=== PATIENT | female | born 1940 | race Two or more races ===

== ENCOUNTER 2020-09-26 07:36 | Inpatient (IN) | payer MEDICARE, MEDICAID ==
[~2020-09-26] VITALS: Ht 167.6 cm; Wt 66.7 kg
[2020-09-26] MEDS ORDERED: ACETAMINOPHEN 650MG SUPP PR STA (07:59)
[2020-09-26] MEDS ORDERED: SODIUM CHLORIDE 0.9% 1000ML BAG (SEPSIS BOLUS) IV ONE (08:00)
[2020-09-26] MEDS ORDERED: SODIUM CHLORIDE 0.9% 1,000 ML IV ONE (08:00)
[2020-09-26] MEDS ORDERED: CEFTRIAXONE 1 G PREMIX 50 ML IV ONE (08:00)
[2020-09-26] MEDS ORDERED: AZITHROMYCIN 500 MG in DEXT 5% WATER 250 ML IV ONE (08:00)
[2020-09-26 09:17] LABS: BASOPHILS % 0.5 % (0.0-2.0); EOSINOPHILS % 0.1 % (0.0-5.0); HEMATOCRIT. 40.9 % (36.0-48.0); HEMOGLOBIN. 13.6 g/dL (12.0-16.0); LYMPHOCYTES % 15.2 % (20.0-50.0); MEAN CORPUSCULAR HEMOGLOBIN 29.2 pg (28.0-32.0); MEAN CORPUSCULAR VOLUME 87.7 fL (81.0-99.0); MEAN PLATELET VOLUME 7.2 fl (7.4-10.4); MONOCYTES % 8.2 % (2.0-8.0); PLATELET 357 x1000/uL (130-400); RED BLOOD CELL COUNT 4.66 mill/uL (4.2-5.4); RED CELL DISTRIBUTION WIDTH 13.2 % (11.6-14.6)
[2020-09-26 09:22] LABS: CLARITY URINE CLEAR (CLEAR); COLOR URINE YELLOW (YELLOW); KETONES URINE NEGATIVE (NEGATIVE); LEUKOCYTE ESTERASE URINE NEGATIVE (NEGATIVE); NITRITE URINE NEGATIVE (NEGATIVE); OCCULT BLOOD URINE NEGATIVE (NEGATIVE); PROTEIN URINE NEGATIVE (NEGATIVE); SPECIFIC GRAVITY URINE 1.028 (1.005-1.030); UROBILINOGEN URINE 0.2 E.U./dL (0.2-1.0)
[2020-09-26 09:25] LABS: CHLORIDE 111 mEq/L (98-107)
[2020-09-26 09:33] LABS: CREATINE KINASE 802 IU/L (26-192)
[2020-09-26 09:35] LABS: D-DIMER 17.44 mg/L FEU (<0.50); INR 1.1; PROTHROMBIN TIME 11.4 sec (9.6-11.0)
[2020-09-26] MEDS ORDERED: IOHEXOL-350 100 ML BOTTLE ONE (12:50)
[2020-09-26] MEDS ORDERED: METRONIDAZOLE 500 MG PREMIX 100 ML IV SCH (13:00)
[2020-09-26] MEDS ORDERED: ACETAMINOPHEN 325MG TABLET PO PRN ×2 (17:15)
[2020-09-26] MEDS ORDERED: ACETAMINOPHEN 650MG SUPP PR PRN (17:15)
[2020-09-26] MEDS ORDERED: GUAIFENESIN 200MG/10ML SUGAR FREE UDC PO PRN (17:15)
[2020-09-26] MEDS ORDERED: ONDANSETRON HCL 4MG/2ML INJ IV PRN (17:15)
[2020-09-26] MEDS ORDERED: CLONIDINE 0.1MG TABLET PO PRN (17:15)
[2020-09-26] MEDS ORDERED: ACETAMINOPHEN 650MG/20.3ML UDC GT PRN ×2 (17:15)
[2020-09-26] MEDS ORDERED: DOCUSATE SODIUM 100MG CAPSULE PO PRN (17:15)
[2020-09-26] MEDS ORDERED: NA PHOS,M-B/NA PHOS,DI-BA ENEMA 118ML PR PRN (17:15)
[2020-09-26] MEDS ORDERED: DIPHENHYDRAMINE 50MG/ML VIAL IV PRN (17:15)
[2020-09-26] MEDS ORDERED: HYDROCODONE/ACETAMINOPHEN 5/325MG TABLET PO PRN (17:15)
[2020-09-26] MEDS ORDERED: MAGNESIUM/ALUMINUM HYDROXIDE/SIMETHICONE 30ML UDC PO PRN (17:15)
[2020-09-27 00:40] LABS: CREATINE KINASE MB FRACTION 1.8 ng/mL (0.5-3.6)
[2020-09-27 05:55] LABS: CHLORIDE 117 mEq/L (98-107)
[2020-09-27 06:04] LABS: CREATINE KINASE 371 IU/L (26-192)
[2020-09-27 06:07] LABS: CREATINE KINASE MB FRACTION 1.9 ng/mL (0.5-3.6)
[2020-09-27 09:37] LABS: *AMPHETAMINES SCREEN URINE NEGATIVE (NEGATIVE); *BARBITURATES SCREEN URINE NEGATIVE (NEGATIVE); *BENZODIAZEPINES SCREEN URINE NEGATIVE (NEGATIVE)
[2020-09-27 09:38] LABS: *COCAINE SCREEN URINE NEGATIVE (NEGATIVE); CANNABINOID URINE SCREEN NEGATIVE (NEGATIVE); METHADONE URINE SCREEN NEGATIVE (NEGATIVE); OPIATES URINE SCREEN NEGATIVE (NEGATIVE); PHENCYCLIDINE URINE SCREEN NEGATIVE (NEGATIVE)
[2020-09-27] MEDS ORDERED: SODIUM CHLORIDE 0.9% 1,000 ML IV SCH (10:00)
[2020-09-27] MEDS: DEXTROSE 5% WATER 1,000 ML IV SCH (11:15)
[2020-09-27 11:35] LABS: T4 FREE 1.48 ng/dL (0.76-1.46)
[2020-09-27 16:12] VITALS: BP 125/80
[2020-09-27] MEDS: SENNOSIDES/DOCUSATE SOD 8.6/50MG TABLET PO SCH (16:52)
[2020-09-27 20:00] VITALS: BP 136/63
[2020-09-27 21:19] LABS: CREATINE KINASE 298 IU/L (26-192)
[2020-09-27 21:20] LABS: CREATINE KINASE MB FRACTION 3.2 ng/mL (0.5-3.6)
[2020-09-28 00:09] VITALS: BP 125/68
[2020-09-28] MEDS: DEXTROSE 5% WATER 1,000 ML IV SCH ×2 (01:13→17:11)
[2020-09-28 01:43] LABS: CREATINE KINASE 237 IU/L (26-192)
[2020-09-28 01:44] LABS: CREATINE KINASE MB FRACTION 2.9 ng/mL (0.5-3.6)
[2020-09-28 04:00] VITALS: BP 141/79
[2020-09-28] MEDS ORDERED: DEXTROSE 50% WATER 50ML SYRINGE IV PRN (07:30)
[2020-09-28 08:00] VITALS: BP 130/73
[2020-09-28 09:33] LABS: CREATINE KINASE 170 IU/L (26-192)
[2020-09-28 09:34] LABS: CREATINE KINASE MB FRACTION 2.3 ng/mL (0.5-3.6)
[2020-09-28] MEDS: ENOXAPARIN 40MG/0.4ML SYR SUBCUT SCH (10:28)
[2020-09-28] MEDS: SENNOSIDES/DOCUSATE SOD 8.6/50MG TABLET PO SCH ×2 (10:29→17:10)
[2020-09-28] MEDS: BLOOD SUGAR DIAGNOSTIC STRIP TEST SCH ×3 (11:40→21:07)
[2020-09-28] MEDS: VANCOMYCIN 750 MG PREMIX 150 ML IV SCH (11:54)
[2020-09-28 12:00] VITALS: BP 157/86
[2020-09-28] MEDS: INSULIN LISPRO 100 UNITS/ML SUBCUT SCH ×3 (12:10→21:17)
[2020-09-28 16:00] VITALS: BP 150/83
[2020-09-28] MEDS: NYSTATIN 100,000 UNITS/ML 5ML UDC SSW SCH (17:10)
[2020-09-28 20:00] VITALS: BP 134/73
[2020-09-28 21:28] LABS: BASOPHILS % 0.5 % (0.0-2.0); EOSINOPHILS % 3.1 % (0.0-5.0); HEMATOCRIT. 34.4 % (36.0-48.0); HEMOGLOBIN. 11.5 g/dL (12.0-16.0); LYMPHOCYTES % 12.7 % (20.0-50.0); MEAN CORPUSCULAR HEMOGLOBIN 29.5 pg (28.0-32.0); MEAN CORPUSCULAR VOLUME 88.2 fL (81.0-99.0); MEAN PLATELET VOLUME 7.9 fl (7.4-10.4); MONOCYTES % 6.8 % (2.0-8.0); NEUTROPHILS % 76.9 % (40.0-76.0); PLATELET 239 x1000/uL (130-400); RED CELL DISTRIBUTION WIDTH 12.8 % (11.6-14.6)
[2020-09-28 21:38] LABS: CHLORIDE 114 mEq/L (98-107)
[2020-09-29] VITALS: BP 129/80
[2020-09-29] MEDS: NYSTATIN 100,000 UNITS/ML 5ML UDC SSW SCH ×4 (01:04→17:02)
[2020-09-29 04:00] VITALS: BP 124/68
[2020-09-29] MEDS: VANCOMYCIN 750 MG PREMIX 150 ML IV SCH (04:54)
[2020-09-29] MEDS: DEXTROSE 5% WATER 1,000 ML IV SCH ×2 (04:56→16:46)
[2020-09-29] MEDS: BLOOD SUGAR DIAGNOSTIC STRIP TEST SCH ×4 (07:20→21:15)
[2020-09-29 08:00] VITALS: BP 134/75
[2020-09-29] MEDS: SENNOSIDES/DOCUSATE SOD 8.6/50MG TABLET PO SCH ×2 (08:54→16:44)
[2020-09-29] MEDS: ENOXAPARIN 40MG/0.4ML SYR SUBCUT SCH (08:55)
[2020-09-29] MEDS: INSULIN LISPRO 100 UNITS/ML SUBCUT SCH ×4 (08:57→21:50)
[2020-09-29] MEDS: VANCOMYCIN 1 G PREMIX 200 ML IV SCH (17:02)
[2020-09-29 20:00] VITALS: BP 122/67
[2020-09-29 20:16] LABS: INR 1.1; PROTHROMBIN TIME 11.5 sec (9.6-11.0)
[2020-09-29 20:18] LABS: BASOPHILS % 0.3 % (0.0-2.0); EOSINOPHILS % 4.3 % (0.0-5.0); HEMATOCRIT. 32.3 % (36.0-48.0); HEMOGLOBIN. 10.9 g/dL (12.0-16.0); LYMPHOCYTES % 15.6 % (20.0-50.0); MEAN CORPUSCULAR HEMOGLOBIN 29.5 pg (28.0-32.0); MEAN CORPUSCULAR VOLUME 87.6 fL (81.0-99.0); MEAN PLATELET VOLUME 8.1 fl (7.4-10.4); MONOCYTES % 8.5 % (2.0-8.0); NEUTROPHILS % 71.3 % (40.0-76.0); PLATELET 234 x1000/uL (130-400); RED BLOOD CELL COUNT 3.69 mill/uL (4.2-5.4); RED CELL DISTRIBUTION WIDTH 12.9 % (11.6-14.6)
[2020-09-29 20:22] LABS: CHLORIDE 111 mEq/L (98-107)
[2020-09-29] MEDS: ENOXAPARIN 60MG/0.6ML SYR SUBCUT SCH (22:51)
[2020-09-30] VITALS: BP 124/50
[2020-09-30] MEDS: NYSTATIN 100,000 UNITS/ML 5ML UDC SSW SCH ×4 (00:13→18:07)
[2020-09-30 04:00] VITALS: BP 127/68
[2020-09-30] MEDS: DEXTROSE 5% WATER 1,000 ML IV SCH (05:57)
[2020-09-30 07:15] LABS: BASOPHILS % 0.4 % (0.0-2.0); EOSINOPHILS % 5.6 % (0.0-5.0); HEMATOCRIT. 30.5 % (36.0-48.0); HEMOGLOBIN. 10.3 g/dL (12.0-16.0); LYMPHOCYTES % 13.4 % (20.0-50.0); MEAN CORPUSCULAR HEMOGLOBIN 29.4 pg (28.0-32.0); MEAN CORPUSCULAR VOLUME 87.5 fL (81.0-99.0); MEAN PLATELET VOLUME 8.2 fl (7.4-10.4); MONOCYTES % 6.7 % (2.0-8.0); NEUTROPHILS % 73.9 % (40.0-76.0); PLATELET 236 x1000/uL (130-400); RED BLOOD CELL COUNT 3.49 mill/uL (4.2-5.4); RED CELL DISTRIBUTION WIDTH 12.7 % (11.6-14.6)
[2020-09-30 07:23] LABS: CHLORIDE 109 mEq/L (98-107)
[2020-09-30] MEDS: BLOOD SUGAR DIAGNOSTIC STRIP TEST SCH ×4 (07:32→21:00)
[2020-09-30] MEDS: INSULIN LISPRO 100 UNITS/ML SUBCUT SCH ×4 (07:50→21:00)
[2020-09-30 08:00] VITALS: BP 101/65
[2020-09-30] MEDS: ENOXAPARIN 60MG/0.6ML SYR SUBCUT SCH ×2 (08:01→21:52)
[2020-09-30] MEDS: SENNOSIDES/DOCUSATE SOD 8.6/50MG TABLET PO SCH ×2 (09:00→17:00)
[2020-09-30] MEDS: VANCOMYCIN 1 G PREMIX 200 ML IV SCH (11:05)
[2020-09-30 12:00] VITALS: BP 132/69
[2020-09-30] MEDS ORDERED: BISACODYL 10MG SUPP PR NR (12:00)
[2020-09-30] MEDS ORDERED: KCL 20MEQ/100ML PREMIX 100 ML IV ONE (13:00)
[2020-09-30 20:00] VITALS: BP 130/65
[2020-09-30] MEDS: PANTOPRAZOLE SODIUM 40 MG/VIAL IV SCH (21:36)
[2020-10-01] VITALS: BP 142/73
[2020-10-01] MEDS: NYSTATIN 100,000 UNITS/ML 5ML UDC SSW SCH ×4 (00:21→21:57)
[2020-10-01] MEDS: DEXTROSE 5% WATER 1,000 ML IV SCH ×2 (00:21→21:59)
[2020-10-01 04:00] VITALS: BP 146/63
[2020-10-01] MEDS: BLOOD SUGAR DIAGNOSTIC STRIP TEST SCH ×4 (07:20→21:58)
[2020-10-01] MEDS: INSULIN LISPRO 100 UNITS/ML SUBCUT SCH ×4 (07:50→21:00)
[2020-10-01 08:00] VITALS: BP 129/64
[2020-10-01] MEDS: SENNOSIDES/DOCUSATE SOD 8.6/50MG TABLET PO SCH ×2 (09:00→17:00)
[2020-10-01] MEDS: ENOXAPARIN 60MG/0.6ML SYR SUBCUT SCH ×2 (09:08→21:58)
[2020-10-01] MEDS: PANTOPRAZOLE SODIUM 40 MG/VIAL IV SCH ×2 (09:08→21:57)
[2020-10-01 10:06] LABS: BASOPHILS % 0.5 % (0.0-2.0); EOSINOPHILS % 4.5 % (0.0-5.0); HEMOGLOBIN. 11.2 g/dL (12.0-16.0); LYMPHOCYTES % 12.7 % (20.0-50.0); MEAN CORPUSCULAR VOLUME 86.1 fL (81.0-99.0); MEAN PLATELET VOLUME 7.9 fl (7.4-10.4); MONOCYTES % 6.1 % (2.0-8.0); NEUTROPHILS % 76.2 % (40.0-76.0); PLATELET 279 x1000/uL (130-400); RED CELL DISTRIBUTION WIDTH 12.8 % (11.6-14.6)
[2020-10-01 10:15] LABS: INR 1.1; PROTHROMBIN TIME 11.8 sec (9.6-11.0)
[2020-10-01 10:21] LABS: CHLORIDE 106 mEq/L (98-107)
[2020-10-01 12:00] VITALS: BP 132/66
[2020-10-01] MEDS ORDERED: CEFAZOLIN 1000MG PREMIX 50 ML IV ONE ×2 (15:40→16:33)
[2020-10-01] MEDS ORDERED: FENTANYL CITRATE/PF 50MCG/ML 2ML VIAL ONE (15:45)
[2020-10-01] MEDS ORDERED: MIDAZOLAM HCL 5 MG/5 ML VIAL ONE (15:45)
[2020-10-01] MEDS ORDERED: CEFAZOLIN 1000MG PREMIX 50 ML IV SCH (18:00)
[2020-10-01 20:00] VITALS: BP 129/58
[2020-10-01] MEDS ORDERED: POTASSIUM CHLORIDE INJ 40 MEQ in DEXT 5% WATER 500 ML IV NR (21:00)
[2020-10-01] MEDS: SUCRALFATE 1 G/10 ML UDC GT SCH (21:56)
[2020-10-01] MEDS: METOCLOPRAMIDE HCL 10MG/2ML VIAL IV SCH (21:57)
[2020-10-02] VITALS: BP 113/46
[2020-10-02] MEDS: METOCLOPRAMIDE HCL 10MG/2ML VIAL IV SCH ×5 (01:46→23:12)
[2020-10-02] MEDS: NYSTATIN 100,000 UNITS/ML 5ML UDC SSW SCH ×5 (01:47→23:12)
[2020-10-02] MEDS: SUCRALFATE 1 G/10 ML UDC GT SCH ×5 (01:47→23:07)
[2020-10-02 04:00] VITALS: BP 138/61
[2020-10-02] MEDS: BLOOD SUGAR DIAGNOSTIC STRIP TEST SCH ×4 (06:46→21:00)
[2020-10-02 07:10] LABS: BASOPHILS % 0.4 % (0.0-2.0); EOSINOPHILS % 4.7 % (0.0-5.0); HEMATOCRIT. 28.9 % (36.0-48.0); HEMOGLOBIN. 10.2 g/dL (12.0-16.0); LYMPHOCYTES % 10.9 % (20.0-50.0); MEAN CORPUSCULAR HEMOGLOBIN 30.1 pg (28.0-32.0); MEAN CORPUSCULAR VOLUME 85.1 fL (81.0-99.0); MEAN PLATELET VOLUME 7.9 fl (7.4-10.4); MONOCYTES % 7.4 % (2.0-8.0); NEUTROPHILS % 76.6 % (40.0-76.0); PLATELET 298 x1000/uL (130-400); RED CELL DISTRIBUTION WIDTH 12.8 % (11.6-14.6)
[2020-10-02 07:46] LABS: CHLORIDE 106 mEq/L (98-107)
[2020-10-02] MEDS: INSULIN LISPRO 100 UNITS/ML SUBCUT SCH ×4 (07:50→21:00)
[2020-10-02 08:00] VITALS: BP 111/56
[2020-10-02] MEDS: PANTOPRAZOLE SODIUM 40 MG/VIAL IV SCH ×2 (09:03→22:13)
[2020-10-02] MEDS: ENOXAPARIN 60MG/0.6ML SYR SUBCUT SCH ×2 (09:04→22:12)
[2020-10-02] MEDS: SENNOSIDES/DOCUSATE SOD 8.6/50MG TABLET PO SCH ×2 (09:04→18:01)
[2020-10-02 12:00] VITALS: BP 127/56
[2020-10-02] MEDS: DEXTROSE 5% WATER 1,000 ML IV SCH (12:55)
[2020-10-02 16:00] VITALS: BP 114/60
[2020-10-02 20:00] VITALS: BP 123/58
[2020-10-03] VITALS: BP_SYST 109; BP_SYST 118; BP_DIAS 65; BP_DIAS 69
[2020-10-03 04:00] VITALS: BP 116/69
[2020-10-03] MEDS: SUCRALFATE 1 G/10 ML UDC GT SCH ×3 (06:48→17:25)
[2020-10-03] MEDS: NYSTATIN 100,000 UNITS/ML 5ML UDC SSW SCH ×3 (06:48→17:25)
[2020-10-03] MEDS: METOCLOPRAMIDE HCL 10MG/2ML VIAL IV SCH ×3 (06:48→17:25)
[2020-10-03] MEDS: DEXTROSE 5% WATER 1,000 ML IV SCH ×2 (06:48→13:32)
[2020-10-03] MEDS: INSULIN LISPRO 100 UNITS/ML SUBCUT SCH ×4 (07:47→21:00)
[2020-10-03] MEDS: BLOOD SUGAR DIAGNOSTIC STRIP TEST SCH ×4 (07:47→21:00)
[2020-10-03 08:00] VITALS: BP 153/58
[2020-10-03] MEDS: SENNOSIDES/DOCUSATE SOD 8.6/50MG TABLET PO SCH ×2 (09:06→17:25)
[2020-10-03] MEDS: PANTOPRAZOLE SODIUM 40 MG/VIAL IV SCH (09:06)
[2020-10-03] MEDS: ENOXAPARIN 60MG/0.6ML SYR SUBCUT SCH (09:07)
[2020-10-03 12:00] VITALS: BP 122/56
[2020-10-03] MEDS ORDERED: PHYTONADIONE 10MG/ML AMP SUBCUT NR (13:15)
[2020-10-03 16:00] VITALS: BP 130/73
[2020-10-03 16:12] LABS: CHLORIDE 102 mEq/L (98-107)
[2020-10-03 16:19] LABS: BASOPHILS % 0.4 % (0.0-2.0); EOSINOPHILS % 2.3 % (0.0-5.0); HEMATOCRIT. 34.2 % (36.0-48.0); HEMOGLOBIN. 11.8 g/dL (12.0-16.0); LYMPHOCYTES % 12.1 % (20.0-50.0); MEAN CORPUSCULAR HEMOGLOBIN 29.2 pg (28.0-32.0); MEAN CORPUSCULAR VOLUME 84.4 fL (81.0-99.0); MEAN PLATELET VOLUME 7.6 fl (7.4-10.4); MONOCYTES % 8.9 % (2.0-8.0); NEUTROPHILS % 76.3 % (40.0-76.0); PLATELET 409 x1000/uL (130-400); RED BLOOD CELL COUNT 4.06 mill/uL (4.2-5.4); RED CELL DISTRIBUTION WIDTH 12.7 % (11.6-14.6)
[2020-10-03 20:00] VITALS: BP 121/60
[2020-10-04] VITALS: BP 110/59
[2020-10-04] MEDS: PANTOPRAZOLE SODIUM 40 MG/VIAL IV SCH ×3 (00:11→20:47)
[2020-10-04] MEDS: SUCRALFATE 1 G/10 ML UDC GT SCH ×5 (00:11→23:48)
[2020-10-04] MEDS: METOCLOPRAMIDE HCL 10MG/2ML VIAL IV SCH (00:11)
[2020-10-04] MEDS: DEXTROSE 5% WATER 1,000 ML IV SCH ×2 (06:21→17:28)
[2020-10-04] MEDS: BLOOD SUGAR DIAGNOSTIC STRIP TEST SCH ×4 (07:57→21:03)
[2020-10-04 08:00] VITALS: BP 124/64
[2020-10-04] MEDS: SENNOSIDES/DOCUSATE SOD 8.6/50MG TABLET PO SCH ×2 (08:35→17:29)
[2020-10-04] MEDS: INSULIN LISPRO 100 UNITS/ML SUBCUT SCH ×4 (08:53→21:33)
[2020-10-04 12:00] VITALS: BP 118/64
[2020-10-04 16:00] VITALS: BP 118/56
[2020-10-04 20:00] VITALS: BP 128/60
[2020-10-05] VITALS: BP 126/54
[2020-10-05 04:00] VITALS: BP 139/66
[2020-10-05] MEDS: SUCRALFATE 1 G/10 ML UDC GT SCH ×3 (05:38→16:50)
[2020-10-05] MEDS: BLOOD SUGAR DIAGNOSTIC STRIP TEST SCH ×4 (07:37→21:12)
[2020-10-05] MEDS: INSULIN LISPRO 100 UNITS/ML SUBCUT SCH ×4 (07:50→21:00)
[2020-10-05 08:00] VITALS: BP 120/64
[2020-10-05] MEDS: PANTOPRAZOLE SODIUM 40 MG/VIAL IV SCH ×2 (09:42→20:56)
[2020-10-05] MEDS: SENNOSIDES/DOCUSATE SOD 8.6/50MG TABLET PO SCH ×2 (09:49→16:59)
[2020-10-05 12:00] VITALS: BP 126/62
[2020-10-05] MEDS: DEXTROSE 5% WATER 1,000 ML IV SCH (14:03)
[2020-10-05 20:00] VITALS: BP 124/68
[2020-10-06] VITALS: BP 118/53
[2020-10-06] MEDS: SUCRALFATE 1 G/10 ML UDC GT SCH ×4 (00:09→17:38)
[2020-10-06 04:00] VITALS: BP 142/78
[2020-10-06] MEDS: BLOOD SUGAR DIAGNOSTIC STRIP TEST SCH ×4 (06:54→21:00)
[2020-10-06 08:00] VITALS: BP 147/68
[2020-10-06] MEDS: PANTOPRAZOLE SODIUM 40 MG/VIAL IV SCH ×2 (08:37→20:54)
[2020-10-06] MEDS: DEXTROSE 5% WATER 1,000 ML IV SCH ×3 (08:38→21:55)
[2020-10-06] MEDS: SENNOSIDES/DOCUSATE SOD 8.6/50MG TABLET PO SCH ×2 (08:38→17:27)
[2020-10-06] MEDS: INSULIN LISPRO 100 UNITS/ML SUBCUT SCH ×4 (08:42→20:42)
[2020-10-06 12:00] VITALS: BP 106/43
[2020-10-06 16:00] VITALS: BP 123/65
[2020-10-06 20:00] VITALS: BP 148/70
[2020-10-07] VITALS: BP 132/61
[2020-10-07] MEDS: SUCRALFATE 1 G/10 ML UDC GT SCH ×4 (00:18→17:21)
[2020-10-07 04:00] VITALS: BP 130/60
[2020-10-07] MEDS: BLOOD SUGAR DIAGNOSTIC STRIP TEST SCH ×4 (06:36→21:00)
[2020-10-07] MEDS: INSULIN LISPRO 100 UNITS/ML SUBCUT SCH ×4 (07:50→21:00)
[2020-10-07 08:00] VITALS: BP 127/61
[2020-10-07] MEDS: PANTOPRAZOLE SODIUM 40 MG/VIAL IV SCH ×2 (09:05→21:18)
[2020-10-07] MEDS: SENNOSIDES/DOCUSATE SOD 8.6/50MG TABLET PO SCH ×2 (09:05→17:20)
[2020-10-07 12:00] VITALS: BP 135/65
[2020-10-07] MEDS: DEXTROSE 5% WATER 1,000 ML IV SCH (14:35)
[2020-10-07 16:00] VITALS: BP 130/58
[2020-10-07 20:00] VITALS: BP 101/59
[2020-10-08] VITALS (7 sets, daily range): BP systolic 113–152; BP diastolic 52–66
[2020-10-08] MEDS: SUCRALFATE 1 G/10 ML UDC GT SCH ×4 (04:48→18:10)
[2020-10-08] MEDS: BLOOD SUGAR DIAGNOSTIC STRIP TEST SCH ×3 (07:20→18:17)
[2020-10-08 07:47] LABS: CHLORIDE 101 mEq/L (98-107)
[2020-10-08 07:57] LABS: BASOPHILS % 0.7 % (0.0-2.0); EOSINOPHILS % 7.1 % (0.0-5.0); HEMATOCRIT. 28.6 % (36.0-48.0); HEMOGLOBIN. 9.7 g/dL (12.0-16.0); LYMPHOCYTES % 14.9 % (20.0-50.0); MEAN CORPUSCULAR HEMOGLOBIN 29.3 pg (28.0-32.0); MEAN CORPUSCULAR VOLUME 86.7 fL (81.0-99.0); MEAN PLATELET VOLUME 6.9 fl (7.4-10.4); MONOCYTES % 6.4 % (2.0-8.0); NEUTROPHILS % 70.9 % (40.0-76.0); PLATELET 440 x1000/uL (130-400); RED CELL DISTRIBUTION WIDTH 13.1 % (11.6-14.6)
[2020-10-08] MEDS: SENNOSIDES/DOCUSATE SOD 8.6/50MG TABLET PO SCH ×2 (09:07→18:10)
[2020-10-08] MEDS: PANTOPRAZOLE SODIUM 40 MG/VIAL IV SCH (09:07)
[2020-10-08] MEDS: INSULIN LISPRO 100 UNITS/ML SUBCUT SCH ×3 (09:18→18:17)
[2020-10-08] MEDS: DEXTROSE 5% WATER 1,000 ML IV SCH (13:08)
[2020-10-09] MEDS ORDERED: ASCORBIC ACID 250 MG TABLET PO SCH (09:00)
[2020-10-09] MEDS ORDERED: ZINC SULFATE 220 MG ( 50 ) CAPSULE PO SCH (09:00)
== END 2020-10-08 21:04 | DRG 640 ==
LOC: ER 07:44 → MICUSO 15:38 → EDBEDREQSVC 15:41 → EDBEDREQ 15:41 → 7EST 09-27 10:59 → MICUSO 09-27 11:57 → 7EST 09-27 12:25 → 3WST 09-28 23:44 → 6EST 09-29 01:45
PROVIDERS: ADMIT Family Medicine; ATTEND Family Medicine
PROC: 0DH63UZ Insertion of Feeding Device into Stomach, Percutaneous Approach (ICD-10-PCS; principal; 2020-10-01)
PROC: 0DB68ZX Excision of Stomach, Via Natural or Artificial Opening Endoscopic, Diagnostic (ICD-10-PCS; 2020-10-01)
DX: E86.0 Dehydration (principal); N17.0 Acute kidney failure with tubular necrosis; I48.20 Chronic atrial fibrillation, unspecified; I82.432 Acute embolism and thrombosis of left popliteal vein; E44.0 Moderate protein-calorie malnutrition; E87.0 Hyperosmolality and hypernatremia; F03.90 Unspecified dementia, unspecified severity, without behavioral disturbance, psychotic disturbance, mood disturbance, and anxiety; E11.9 Type 2 diabetes mellitus without complications; I10 Essential (primary) hypertension; I70.0 Atherosclerosis of aorta; I71.2 Thoracic aortic aneurysm, without rupture; K56.41 Fecal impaction; Z20.828 Contact with and (suspected) exposure to other viral communicable diseases; D64.9 Anemia, unspecified; K29.30 Chronic superficial gastritis without bleeding; K29.60 Other gastritis without bleeding; K29.80 Duodenitis without bleeding; K62.89 Other specified diseases of anus and rectum; K52.9 Noninfective gastroenteritis and colitis, unspecified; L85.3 Xerosis cutis; R13.10 Dysphagia, unspecified; Z79.899 Other long term (current) drug therapy; Z79.1 Long term (current) use of non-steroidal anti-inflammatories (NSAID); Z79.82 Long term (current) use of aspirin; Z68.23 Body mass index [BMI] 23.0-23.9, adult; R91.8 Other nonspecific abnormal finding of lung field; K26.9 Duodenal ulcer, unspecified as acute or chronic, without hemorrhage or perforation; R62.7 Adult failure to thrive; Z86.718 Personal history of other venous thrombosis and embolism
CPT/HCPCS: 36415; 71045; 71275; 74018; 74174; 80048; 80053; 80061; 80305; 81003; 82550; 82553; 82728; 82941; 82962; 83036; 83605; 83615; 83880; 84145; 84439; 84443; 84484; 85025; 85379; 85384; 86140; 88305; 88313; 92610; 93005; 93306; 93971; 99291; C9113; J0456; J0690; J0696; J1200; J1650; J1815; J2250; J2765; J3010; J3370; J3430; J3480; J3490; J7030; J7040; J7060; J7070; Q9967; U0003

== ENCOUNTER 2022-11-20 11:18 | Inpatient (IN) | payer MEDICARE, MEDICAID ==
[~2022-11-20] VITALS: Ht 154.9 cm; Wt 68.9 kg
[2022-11-20] MEDS ORDERED: PANTOPRAZOLE SODIUM 40 MG/VIAL IV NR (12:15)
[2022-11-20] MEDS ORDERED: SODIUM CHLORIDE 0.9% 1,000 ML IV ONE (12:15)
[2022-11-20 13:54] LABS: BASOPHILS % 0.2 % (0.0-2.0); HEMOGLOBIN. 14.5 g/dL (12.0-16.0); LYMPHOCYTES % 9.8 % (20.0-50.0); MEAN CORPUSCULAR HEMOGLOBIN 29.5 pg (28.0-32.0); MEAN CORPUSCULAR VOLUME 89.4 fL (81.0-99.0); MEAN PLATELET VOLUME 7.9 fl (7.4-10.4); MONOCYTES % 4.7 % (2.0-8.0); NEUTROPHILS % 85.3 % (40.0-76.0); PLATELET 241 x1000/uL (130-400); RED BLOOD CELL COUNT 4.92 mill/uL (4.2-5.4); RED CELL DISTRIBUTION WIDTH 13.6 % (11.6-14.6)
[2022-11-20 14:02] LABS: CHLORIDE 100 mEq/L (98-107)
[2022-11-20 14:05] LABS: PROTHROMBIN TIME 10.6 sec (9.6-11.0)
[2022-11-20] MEDS ORDERED: HYDRALAZINE 20MG/ML VIAL IV ONE (16:00)
[2022-11-20] MEDS ORDERED: DOCUSATE SODIUM 100MG CAPSULE PO SCH (18:15)
[2022-11-20] MEDS ORDERED: SENNOSIDES/DOCUSATE SOD 8.6/50MG TABLET PO PRN ×2 (18:15→18:30)
[2022-11-20] MEDS ORDERED: DEXTROSE 50% WATER 50ML SYRINGE IV PRN (18:30)
[2022-11-20] MEDS: PANTOPRAZOLE 80 MG in SODIUM CHLORIDE 0.9% 100 ML IV SCH (19:00)
[2022-11-20] MEDS ORDERED: MINERAL OIL ENEMA 133ML PR NR (19:00)
[2022-11-20] MEDS: INSULIN LISPRO 100 UNITS/ML SUBCUT SCH (21:00)
[2022-11-20] MEDS: BLOOD SUGAR DIAGNOSTIC STRIP TEST SCH (21:34)
[2022-11-20] MEDS: SODIUM CHLORIDE 0.45% 1,000 ML IV SCH (21:35)
[2022-11-20] MEDS: LACTULOSE 20G/30ML UDC PO SCH (22:00)
[2022-11-21 05:22] LABS: BASOPHILS % 0.4 % (0.0-2.0); EOSINOPHILS % 1.2 % (0.0-5.0); HEMATOCRIT. 38.2 % (36.0-48.0); HEMOGLOBIN. 12.8 g/dL (12.0-16.0); MEAN CORPUSCULAR HEMOGLOBIN 30.1 pg (28.0-32.0); MEAN CORPUSCULAR VOLUME 89.8 fL (81.0-99.0); MEAN PLATELET VOLUME 7.4 fl (7.4-10.4); MONOCYTES % 7.1 % (2.0-8.0); NEUTROPHILS % 77.3 % (40.0-76.0); PLATELET 219 x1000/uL (130-400); RED BLOOD CELL COUNT 4.25 mill/uL (4.2-5.4); RED CELL DISTRIBUTION WIDTH 13.4 % (11.6-14.6)
[2022-11-21 05:44] LABS: PROTHROMBIN TIME 10.9 sec (9.6-11.0)
[2022-11-21 05:49] LABS: CHLORIDE 107 mEq/L (98-107)
[2022-11-21 05:57] LABS: HDL CHOLESTEROL 56 mg/dL (40-59); LDL CHOLESTEROL 70 mg/dL (5-100)
[2022-11-21] MEDS: PANTOPRAZOLE 80 MG in SODIUM CHLORIDE 0.9% 100 ML IV SCH (10:42)
[2022-11-21] MEDS: SUCRALFATE 1 G/10 ML UDC GT SCH ×2 (17:05→21:48)
[2022-11-21] MEDS: BLOOD SUGAR DIAGNOSTIC STRIP TEST SCH ×2 (17:20→21:49)
[2022-11-21] MEDS: INSULIN LISPRO 100 UNITS/ML SUBCUT SCH ×2 (17:50→21:00)
[2022-11-21 20:00] VITALS: BP 146/80
[2022-11-21 20:12] VITALS: BP 148/73
[2022-11-21] MEDS: PANTOPRAZOLE SODIUM 40 MG/VIAL IV SCH (20:52)
[2022-11-21] MEDS ORDERED: ALBUTEROL (0.083%) 2.5MG/3ML NEB ONE (21:27)
[2022-11-21] MEDS ORDERED: IPRATROPIUM BROMIDE (0.02%) 0.5MG/2.5ML NEB ONE (21:27)
[2022-11-21] MEDS: IPRATROPIUM BROMIDE (0.02%) 0.5MG/2.5ML NEB HHN SCH (21:28)
[2022-11-21] MEDS: ALBUTEROL (0.083%) 2.5MG/3ML NEB HHN SCH (21:28)
[2022-11-22] VITALS: BP 150/66
[2022-11-22] MEDS ORDERED: IPRATROPIUM/ALBUTEROL 0.5-3(2.5)MG/3ML NEB HHN SCH
[2022-11-22] MEDS: IPRATROPIUM BROMIDE (0.02%) 0.5MG/2.5ML NEB HHN SCH ×4 (03:09→20:27)
[2022-11-22] MEDS: ALBUTEROL (0.083%) 2.5MG/3ML NEB HHN SCH ×4 (03:09→20:27)
[2022-11-22 04:00] VITALS: BP 134/67
[2022-11-22 05:51] LABS: BASOPHILS % 0.4 % (0.0-2.0); HEMATOCRIT. 36.2 % (36.0-48.0); HEMOGLOBIN. 12.1 g/dL (12.0-16.0); LYMPHOCYTES % 18.4 % (20.0-50.0); MEAN CORPUSCULAR HEMOGLOBIN 30.5 pg (28.0-32.0); MEAN CORPUSCULAR VOLUME 91.2 fL (81.0-99.0); MEAN PLATELET VOLUME 7.6 fl (7.4-10.4); NEUTROPHILS % 71.2 % (40.0-76.0); PLATELET 198 x1000/uL (130-400); RED BLOOD CELL COUNT 3.96 mill/uL (4.2-5.4); RED CELL DISTRIBUTION WIDTH 13.5 % (11.6-14.6)
[2022-11-22] MEDS: SUCRALFATE 1 G/10 ML UDC GT SCH ×3 (06:46→20:22)
[2022-11-22 07:36] LABS: CHLORIDE 107 mEq/L (98-107)
[2022-11-22 08:00] VITALS: BP 146/82
[2022-11-22] MEDS ORDERED: NA PHOS,M-B/NA PHOS,DI-BA ENEMA 118ML PR NR (09:45)
[2022-11-22] MEDS: SODIUM CHLORIDE 0.45% 1,000 ML IV SCH ×2 (11:38→21:00)
[2022-11-22 12:00] VITALS: BP 147/70
[2022-11-22] MEDS: BLOOD SUGAR DIAGNOSTIC STRIP TEST SCH ×3 (12:38→21:00)
[2022-11-22] MEDS: INSULIN LISPRO 100 UNITS/ML SUBCUT SCH ×3 (12:39→21:00)
[2022-11-22 16:00] VITALS: BP 145/74
[2022-11-22] MEDS: METOPROLOL TARTRATE 25MG TABLET PO SCH ×2 (18:18→20:21)
[2022-11-22] MEDS: LACTULOSE 20G/30ML UDC PO SCH (18:19)
[2022-11-22] MEDS: PANTOPRAZOLE SODIUM 40 MG/VIAL IV SCH ×2 (18:19→20:22)
[2022-11-22 20:00] VITALS: BP 156/78
[2022-11-23] VITALS: BP 144/79
[2022-11-23] MEDS: ALBUTEROL (0.083%) 2.5MG/3ML NEB HHN SCH ×2 (01:45→09:25)
[2022-11-23] MEDS: IPRATROPIUM BROMIDE (0.02%) 0.5MG/2.5ML NEB HHN SCH ×2 (01:45→09:25)
[2022-11-23 04:00] VITALS: BP 143/71
[2022-11-23] MEDS: SUCRALFATE 1 G/10 ML UDC GT SCH (06:48)
[2022-11-23] MEDS: LACTULOSE 20G/30ML UDC PO SCH (06:48)
[2022-11-23 07:10] LABS: BASOPHILS % 0.3 % (0.0-2.0); EOSINOPHILS % 4.3 % (0.0-5.0); HEMATOCRIT. 36.7 % (36.0-48.0); HEMOGLOBIN. 12.2 g/dL (12.0-16.0); LYMPHOCYTES % 22.4 % (20.0-50.0); MEAN CORPUSCULAR HEMOGLOBIN 30.5 pg (28.0-32.0); MEAN CORPUSCULAR VOLUME 91.7 fL (81.0-99.0); MEAN PLATELET VOLUME 7.5 fl (7.4-10.4); PLATELET 203 x1000/uL (130-400); RED BLOOD CELL COUNT 4.01 mill/uL (4.2-5.4); RED CELL DISTRIBUTION WIDTH 13.5 % (11.6-14.6)
[2022-11-23] MEDS: BLOOD SUGAR DIAGNOSTIC STRIP TEST SCH (07:20)
[2022-11-23] MEDS: INSULIN LISPRO 100 UNITS/ML SUBCUT SCH (07:50)
[2022-11-23 08:00] VITALS: BP 164/74
[2022-11-23 08:19] LABS: CHLORIDE 106 mEq/L (98-107)
[2022-11-23] MEDS: PANTOPRAZOLE SODIUM 40 MG/VIAL IV SCH (09:30)
[2022-11-23] MEDS: METOPROLOL TARTRATE 25MG TABLET PO SCH (09:30)
[2022-11-23 11:06] VITALS: BP 164/67
== END 2022-11-23 11:45 | DRG 378 ==
LOC: ER 11:23 → MICUSO 17:52 → EDBEDREQTM 17:55 → EDBEDREQ 17:55 → 6EST 11-21 15:45
PROVIDERS: ADMIT Family Medicine; ATTEND Family Medicine
DX: K29.51 Unspecified chronic gastritis with bleeding (principal); I48.20 Chronic atrial fibrillation, unspecified; N13.30 Unspecified hydronephrosis; N17.9 Acute kidney failure, unspecified; K20.90 Esophagitis, unspecified without bleeding; K56.41 Fecal impaction; K52.9 Noninfective gastroenteritis and colitis, unspecified; F03.90 Unspecified dementia, unspecified severity, without behavioral disturbance, psychotic disturbance, mood disturbance, and anxiety; E11.9 Type 2 diabetes mellitus without complications; I10 Essential (primary) hypertension; E78.5 Hyperlipidemia, unspecified; K29.30 Chronic superficial gastritis without bleeding; R13.12 Dysphagia, oropharyngeal phase; K76.0 Fatty (change of) liver, not elsewhere classified; R13.10 Dysphagia, unspecified; R16.0 Hepatomegaly, not elsewhere classified; R91.8 Other nonspecific abnormal finding of lung field; Z87.11 Personal history of peptic ulcer disease
CPT/HCPCS: 36415; 71045; 71260; 74018; 74177; 76770; 80048; 80053; 80061; 82950; 82962; 83036; 85018; 85025; 85044; 86850; 86900; 92610; 94640; 99291; C9113; J0360; J1815; J7050

== ENCOUNTER 2023-10-02 10:07 | Inpatient (IN) | payer MEDICARE, MEDICAID ==
[~2023-10-02] VITALS: Ht 152.4 cm; Wt 60.8 kg
[2023-10-02] MEDS ORDERED: IPRATROPIUM BROMIDE (0.02%) 0.5MG/2.5ML NEB HHN STA (10:20)
[2023-10-02] MEDS ORDERED: ALBUTEROL (0.083%) 2.5MG/3ML NEB HHN STA (10:20)
[2023-10-02] MEDS ORDERED: MAGNESIUM 2 G PREMIX 50 ML IV STA (10:20)
[2023-10-02] MEDS ORDERED: LEVOFLOXACIN 750MG PREMIX 150 ML IV STA (10:20)
[2023-10-02] MEDS ORDERED: METHYLPREDNISOLONE SOD SUCC 125MG/2ML (ACT-O-VIAL) IV STA (10:20)
[2023-10-02 10:48] LABS: BASOPHILS % 0.2 % (0.0-2.0); EOSINOPHILS % 2.1 % (0.0-5.0); HEMATOCRIT. 45.3 % (36.0-48.0); HEMOGLOBIN. 14.9 g/dL (12.0-16.0); LYMPHOCYTES % 24.4 % (20.0-50.0); MEAN CORPUSCULAR HEMOGLOBIN 29.9 pg (28.0-32.0); MEAN CORPUSCULAR HGB CONC 32.8 g/dL (31.0-37.0); MEAN CORPUSCULAR VOLUME 91.1 fL (81.0-99.0); MONOCYTES % 5.3 % (2.0-8.0); RED BLOOD CELL COUNT 4.98 mill/uL (4.2-5.4); RED CELL DISTRIBUTION WIDTH 13.4 % (11.6-14.6)
[2023-10-02 10:49] LABS: ADD RBC MORPHOLOGY YES; DIFFERENTIAL COMMENT 1
[2023-10-02 11:00] LABS: PARTIAL THROMBOPLASTIN TIME 27.6 sec (23.4-31.0); PROTHROMBIN TIME 10.5 sec (9.6-11.0)
[2023-10-02 11:08] LABS: ALANINE AMINOTRANSFERASE 19 IU/L (10-49); ALBUMIN 4.1 g/dL (3.2-4.8); ASPARTATE AMINOTRANSFERASE 35 IU/L (<34); BILIRUBIN TOTAL 0.5 mg/dL (0.1-1.0); CALCIUM 9.3 mg/dL (8.7-10.4); CARBON DIOXIDE 32 mEq/L (21-32); CHLORIDE 102 mEq/L (98-107); CREATININE 0.8 mg/dL (0.6-1.0); GLUCOSE 166 mg/dL (70-105); POTASSIUM 4.2 mEq/L (3.5-5.1); PROTEIN TOTAL 8.3 g/dL (6.0-8.3); SODIUM 141 mEq/L (136-145); TROPONIN I HIGH SENSITIVITY 19 ng/L (3.0-34); UREA NITROGEN BLOOD 19 mg/dL (9-23)
[2023-10-02 11:22] LABS: MEAN PLATELET VOLUME 8.2 fl (7.4-10.4); PLATELET 225 x1000/uL (130-400); PLATELET ESTIMATE NORMAL
[2023-10-02 11:27] VITALS: PULSE 84; RESP 20; O2SAT 97
[2023-10-02 13:53] LABS: CLARITY URINE TURBID (CLEAR); COLOR URINE DARK YELLOW (YELLOW); GLUCOSE URINE NEGATIVE (NEGATIVE); KETONES URINE TRACE (NEGATIVE); LEUKOCYTE ESTERASE URINE 1+ (NEGATIVE); NITRITE URINE NEGATIVE (NEGATIVE); OCCULT BLOOD URINE 3+ (NEGATIVE); PROTEIN URINE 2+ (NEGATIVE); SPECIFIC GRAVITY URINE 1.035 (1.005-1.030)
[2023-10-02 14:07] LABS: BACTERIA URINE 3+; RBC URINE 50-100 /hpf (0-2); SQUAMOUS EPITHELIAL CELL URINE 1+ /lpf (RARE/1+); WBC URINE 0-2 /hpf (0-2); YEAST URINE NONE SEEN
[2023-10-02 16:00] VITALS: BP 125/101; PULSE 102; RESP 20; TEMP 97.7
[2023-10-02] MEDS ORDERED: DEXTROSE 50% WATER 50ML SYRINGE IV PRN (16:00)
[2023-10-02] MEDS ORDERED: IPRATROPIUM/ALBUTEROL 0.5-3(2.5)MG/3ML NEB HHN PRN (16:00)
[2023-10-02] MEDS ORDERED: LACT10SO81 MT (16:06)
[2023-10-02] MEDS ORDERED: ACET-2128 MT (16:06)
[2023-10-02] MEDS ORDERED: HYDR-4001 MT (16:06)
[2023-10-02] MEDS ORDERED: METO25TA6 PO (16:06)
[2023-10-02] MEDS ORDERED: SUCR1TAB PO (16:06)
[2023-10-02 16:10] VITALS: BP 125/101; PULSE 103; RESP 20; TEMP 97.7
[2023-10-02] MEDS: BLOOD SUGAR DIAGNOSTIC STRIP TEST SCH ×2 (17:18→21:00)
[2023-10-02] MEDS: INSULIN LISPRO 100 UNITS/ML SUBCUT SCH ×2 (17:21→21:00)
[2023-10-02 20:00] VITALS: BP 146/85; PULSE 103; RESP 20; TEMP 96.3
[2023-10-02] MEDS: DILTIAZEM HCL 30MG TABLET PO SCH (21:40)
[2023-10-02] MEDS: PIPERACILLIN/TAZOBACTAM 3.375 G in DEXTROSE 5% WATER 50 ML IV SCH (21:40)
[2023-10-02 22:50] VITALS: PULSE 84; RESP 18; O2SAT 90
[2023-10-02] MEDS: IPRATROPIUM/ALBUTEROL 0.5-3(2.5)MG/3ML NEB HHN SCH (22:50)
[2023-10-03] VITALS (7 sets, daily range): BP systolic 107–131; BP diastolic 50–93; PULSE 59–108; RESP 18–20; TEMP 96.4–97.9; O2SAT 92–95
[2023-10-03] MEDS: IPRATROPIUM/ALBUTEROL 0.5-3(2.5)MG/3ML NEB HHN SCH ×3 (03:21→14:00)
[2023-10-03] MEDS: DILTIAZEM HCL 30MG TABLET PO SCH ×3 (05:44→21:02)
[2023-10-03] MEDS: BLOOD SUGAR DIAGNOSTIC STRIP TEST SCH ×4 (05:45→21:07)
[2023-10-03] MEDS: PIPERACILLIN/TAZOBACTAM 3.375 G in DEXTROSE 5% WATER 50 ML IV SCH ×3 (05:45→21:00)
[2023-10-03] MEDS: INSULIN LISPRO 100 UNITS/ML SUBCUT SCH ×4 (06:00→21:07)
[2023-10-03 07:42] LABS: HEMOGLOBIN 12.8 g/dL (12.0-16.0); MEAN CORPUSCULAR HEMOGLOBIN 30.1 pg (28.0-32.0); MEAN CORPUSCULAR HGB CONC 33.7 g/dL (31.0-37.0); MEAN CORPUSCULAR VOLUME 89.3 fL (81.0-99.0); PLATELET 188 x1000/uL (130-400); RED BLOOD CELL COUNT 4.25 mill/uL (4.2-5.4); WHITE BLOOD COUNT 8.7 x1000/uL (4.5-11.0)
[2023-10-03] MEDS: METHYLPREDNISOLONE SOD SUCC 40MG/ML (ACT-O-VIAL) IV SCH ×2 (09:14→16:51)
[2023-10-03 11:04] LABS: ALANINE AMINOTRANSFERASE 17 IU/L (10-49); ALBUMIN 3.8 g/dL (3.2-4.8); ASPARTATE AMINOTRANSFERASE 22 IU/L (<34); BILIRUBIN TOTAL 0.5 mg/dL (0.1-1.0); CALCIUM 9.4 mg/dL (8.7-10.4); CARBON DIOXIDE 33 mEq/L (21-32); CHLORIDE 102 mEq/L (98-107); CREATININE 0.8 mg/dL (0.6-1.0); GLUCOSE 153 mg/dL (70-105); POTASSIUM 4.8 mEq/L (3.5-5.1); PROTEIN TOTAL 6.5 g/dL (6.0-8.3); SODIUM 139 mEq/L (136-145); UREA NITROGEN BLOOD 34 mg/dL (9-23)
[2023-10-03] MEDS ORDERED: DILTIAZEM HCL 5MG/ML 5ML VIAL IV PRN (16:30)
[2023-10-04] VITALS (9 sets, daily range): BP systolic 122–145; BP diastolic 65–81; PULSE 70–95; RESP 18–20; TEMP 97.5–98.6; O2SAT 95
[2023-10-04] MEDS: PIPERACILLIN/TAZOBACTAM 3.375 G in DEXTROSE 5% WATER 50 ML IV SCH ×3 (07:10→20:55)
[2023-10-04] MEDS: DILTIAZEM HCL 30MG TABLET PO SCH ×3 (07:11→20:56)
[2023-10-04] MEDS: INSULIN LISPRO 100 UNITS/ML SUBCUT SCH ×4 (07:15→21:16)
[2023-10-04] MEDS: BLOOD SUGAR DIAGNOSTIC STRIP TEST SCH ×4 (07:17→20:55)
[2023-10-04] MEDS: IPRATROPIUM/ALBUTEROL 0.5-3(2.5)MG/3ML NEB HHN SCH ×3 (09:27→21:03)
[2023-10-04] MEDS: METHYLPREDNISOLONE SOD SUCC 40MG/ML (ACT-O-VIAL) IV SCH (10:31)
[2023-10-04 12:45] LABS: BASOPHILS % 0.1 % (0.0-2.0); HEMATOCRIT. 39.7 % (36.0-48.0); HEMOGLOBIN. 13.2 g/dL (12.0-16.0); MEAN CORPUSCULAR HEMOGLOBIN 30.5 pg (28.0-32.0); MEAN CORPUSCULAR HGB CONC 33.2 g/dL (31.0-37.0); MEAN CORPUSCULAR VOLUME 91.8 fL (81.0-99.0); MEAN PLATELET VOLUME 8.6 fl (7.4-10.4); MONOCYTES % 3.2 % (2.0-8.0); NEUTROPHILS % 87.7 % (40.0-76.0); PLATELET 221 x1000/uL (130-400); RED BLOOD CELL COUNT 4.33 mill/uL (4.2-5.4); WHITE BLOOD COUNT 9.6 x1000/uL (4.5-11.0)
[2023-10-04] MEDS ORDERED: VANCOMYCIN 1.25GM PMX (XELLIA) 250 ML IV SCH (15:00)
[2023-10-04 15:20] LABS: ALANINE AMINOTRANSFERASE 24 IU/L (10-49); ALBUMIN 3.9 g/dL (3.2-4.8); ASPARTATE AMINOTRANSFERASE 28 IU/L (<34); BILIRUBIN TOTAL 0.5 mg/dL (0.1-1.0); CALCIUM 9.3 mg/dL (8.7-10.4); CARBON DIOXIDE 35 mEq/L (21-32); CHLORIDE 102 mEq/L (98-107); CREATININE 0.8 mg/dL (0.6-1.0); GLUCOSE 168 mg/dL (70-105); POTASSIUM 4.5 mEq/L (3.5-5.1); PROTEIN TOTAL 7.5 g/dL (6.0-8.3); SODIUM 141 mEq/L (136-145); UREA NITROGEN BLOOD 36 mg/dL (9-23)
[2023-10-04] MEDS: DOXYCYCLINE HYCLATE 100MG CAPSULE PO SCH ×2 (16:36→23:00)
[2023-10-05] VITALS: BP 143/80; PULSE 70; RESP 18; TEMP 98.6
[2023-10-05] MEDS ORDERED: HYDRALAZINE 20MG/ML VIAL IV ONE (00:15)
[2023-10-05 04:00] VITALS: BP 139/80; PULSE 89; RESP 18; TEMP 97
[2023-10-05] MEDS: PIPERACILLIN/TAZOBACTAM 3.375 G in DEXTROSE 5% WATER 50 ML IV SCH (05:41)
[2023-10-05] MEDS: BLOOD SUGAR DIAGNOSTIC STRIP TEST SCH ×2 (05:41→12:35)
[2023-10-05] MEDS: DILTIAZEM HCL 30MG TABLET PO SCH (05:41)
[2023-10-05] MEDS: INSULIN LISPRO 100 UNITS/ML SUBCUT SCH ×2 (07:40→12:41)
[2023-10-05 07:58] VITALS: PULSE 89; RESP 20; O2SAT 91
[2023-10-05] MEDS: IPRATROPIUM/ALBUTEROL 0.5-3(2.5)MG/3ML NEB HHN SCH ×2 (07:58→12:00)
[2023-10-05 08:00] VITALS: BP 139/81; PULSE 92; RESP 22; TEMP 97.7
[2023-10-05] MEDS ORDERED: PREDNISONE 20MG TABLET PO SCH (09:00)
[2023-10-05] MEDS ORDERED: VANCOMYCIN 750MG PREMIX 150 ML IV SCH (09:00)
[2023-10-05] MEDS: DOXYCYCLINE HYCLATE 100MG CAPSULE PO SCH (09:29)
[2023-10-05] MEDS ORDERED: IPRA3AMP9 HHN ×2 (09:55→09:56)
[2023-10-05] MEDS ORDERED: DILT30TA37 PO (09:55)
[2023-10-05] MEDS ORDERED: DOXY100C5 PO (09:55)
[2023-10-05] MEDS ORDERED: METF-414 MT (09:57)
[2023-10-05 12:00] VITALS: BP 141/67; PULSE 95; RESP 18; TEMP 97.9
[2023-10-05 13:54] VITALS: BP 141/67; PULSE 95; TEMP 97.9; O2SAT 95
== END 2023-10-05 14:45 | DRG 193 ==
LOC: ER 10:23 → EDBEDREQ 12:11 → 8WST 15:36
PROVIDERS: ADMIT Family Medicine; ATTEND Family Medicine
DX: J18.9 Pneumonia, unspecified organism (principal); J96.01 Acute respiratory failure with hypoxia; I47.10 Supraventricular tachycardia, unspecified; J45.909 Unspecified asthma, uncomplicated; I48.0 Paroxysmal atrial fibrillation; Z20.822 Contact with and (suspected) exposure to COVID-19; I10 Essential (primary) hypertension; F03.90 Unspecified dementia, unspecified severity, without behavioral disturbance, psychotic disturbance, mood disturbance, and anxiety; E11.9 Type 2 diabetes mellitus without complications; R13.10 Dysphagia, unspecified; Z74.01 Bed confinement status; Z93.1 Gastrostomy status
CPT/HCPCS: 36415; 71045; 80053; 81003; 82962; 83036; 83880; 84145; 84484; 85025; 85027; 87426; 87804; 93005; 93306; 94640; 94644; 99291; J1815; J1956; J2543; J2920; J2930; J3370; J3475; J3490; J7060; J7512

== ENCOUNTER 2023-12-15 19:00 | Inpatient (IN) | payer MEDICAID, MEDICARE ==
[~2023-12-15] VITALS: Ht 162.6 cm; Wt 65.8 kg
[~2023-12-15 19:00] MED LIST: ENOX40DI8 SUBCUT; INSLIS SUBCUT; METO-396 PO; PANT40SU MT; SPIR25TA PO; TOPUD PO
[2023-12-15 19:08] VITALS: O2SAT 100
[2023-12-15 19:24] VITALS: PULSE 105; RESP 23
[2023-12-15 20:37] VITALS: RESP 14
[2023-12-15] MEDS: IPRATROPIUM BROMIDE (0.02%) 0.5MG/2.5ML NEB HHN STA (20:37)
[2023-12-15] MEDS: ALBUTEROL (0.083%) 2.5MG/3ML NEB HHN SCH (20:37)
[2023-12-15] MEDS: ONDANSETRON HCL 4MG/2ML INJ IV ONE (20:45)
[2023-12-15] MEDS: PIPERACILLIN/TAZO 3.375G/50ML 50 ML IV ONE (20:46)
[2023-12-15] MEDS: SODIUM CHLORIDE 0.9% 1,000 ML IV ONE (20:46)
[2023-12-15 20:52] LABS: BG BASE EXCESS 5.9 mmol/L (-2.0-2.0); BG DEOXYHEMOGLOBIN 2.6 % (0.0-5.0); BG FRACTION INSPIRED OXYGEN 35; BG HCO3 ACT 31.1 mmol/L (22.0-26.0); BG METHEMOGLOBIN 0.3 % (0.0-1.5); BG OXYGEN SATURATION 97.4 % (92.0-98.5); BG OXYHEMOGLOBIN 97.1 % (94.0-97.0); BG PCO2 48.1 mmHg (35.0-45.0); BG PH 7.429 (7.350-7.450); BG SAMPLE SITE ALINE; BG TOTAL HEMOGLOBIN 11.6 g/dL (12.0-18.0)
[2023-12-15 21:13] LABS: BASOPHILS % 0.3 % (0.0-2.0); EOSINOPHILS % 1.7 % (0.0-5.0); HEMATOCRIT. 31.9 % (36.0-48.0); HEMOGLOBIN. 10.4 g/dL (12.0-16.0); LYMPHOCYTES % 14.4 % (20.0-50.0); MEAN CORPUSCULAR HEMOGLOBIN 29.7 pg (28.0-32.0); MEAN CORPUSCULAR HGB CONC 32.6 g/dL (31.0-37.0); MEAN CORPUSCULAR VOLUME 90.9 fL (81.0-99.0); MEAN PLATELET VOLUME 8.8 fl (7.4-10.4); MONOCYTES % 5.5 % (2.0-8.0); NEUTROPHILS % 78.1 % (40.0-76.0); PLATELET 211 x1000/uL (130-400); RED BLOOD CELL COUNT 3.51 mill/uL (4.2-5.4); RED CELL DISTRIBUTION WIDTH 14.2 % (11.6-14.6); WHITE BLOOD COUNT 8.4 x1000/uL (4.5-11.0)
[2023-12-15 21:22] LABS: ALANINE AMINOTRANSFERASE 25 IU/L (10-49); ALBUMIN 3.8 g/dL (3.2-4.8); ASPARTATE AMINOTRANSFERASE 35 IU/L (<34); BILIRUBIN TOTAL 0.3 mg/dL (0.1-1.0); CALCIUM 9.4 mg/dL (8.7-10.4); CARBON DIOXIDE 33 mEq/L (21-32); CHLORIDE 94 mEq/L (98-107); CREATININE 0.9 mg/dL (0.6-1.0); GLUCOSE 187 mg/dL (70-105); POTASSIUM 4.6 mEq/L (3.5-5.1); PROTEIN TOTAL 6.3 g/dL (6.0-8.3); SODIUM 133 mEq/L (136-145); UREA NITROGEN BLOOD 33 mg/dL (9-23)
[2023-12-15 21:23] LABS: TROPONIN I HIGH SENSITIVITY 85 ng/L (3.0-34)
[2023-12-15] MEDS: VANCOMYCIN 1G PREMIX 200 ML IV ONE (21:32)
[2023-12-15 22:05] LABS: CLARITY URINE CLOUDY (CLEAR); COLOR URINE DARK YELLOW (YELLOW); GLUCOSE URINE NEGATIVE (NEGATIVE); KETONES URINE NEGATIVE (NEGATIVE); LEUKOCYTE ESTERASE URINE 3+ (NEGATIVE); NITRITE URINE NEGATIVE (NEGATIVE); OCCULT BLOOD URINE 2+ (NEGATIVE); PH URINE 5.5 (4.5-8.0); PROTEIN URINE 1+ (NEGATIVE); SPECIFIC GRAVITY URINE 1.015 (1.005-1.030); UROBILINOGEN URINE 0.2 E.U./dL (0.2-1.0)
[2023-12-15 23:02] LABS: BACTERIA URINE 4+; SQUAMOUS EPITHELIAL CELL URINE 1+ /lpf (RARE/1+); WBC URINE 25-50 /hpf (0-2)
[2023-12-16] VITALS (79 sets, daily range): BP systolic 69–186; BP diastolic 33–88; PULSE 40–102; RESP 0–25; TEMP 93.5–97.8
[2023-12-16] MEDS ORDERED: GUAIFENESIN 200MG/10ML SUGAR FREE UDC GT PRN (00:30)
[2023-12-16] MEDS ORDERED: ACETAMINOPHEN 650MG/20.3ML UDC GT PRN ×2 (00:30)
[2023-12-16] MEDS ORDERED: ONDANSETRON HCL 4MG/2ML INJ IV PRN (00:30)
[2023-12-16] MEDS: DEXT 5%/0.45% NACL 1000ML 1,000 ML IV SCH (00:30)
[2023-12-16] MEDS: DOPAMINE 400MG/250ML PREMIX 250 ML IV PRN (01:55)
[2023-12-16] MEDS ORDERED: CEFEPIME 500 MG in DEXTROSE 5% WATER 50 ML IV SCH (06:00)
[2023-12-16] MEDS: IPRATROPIUM/ALBUTEROL 0.5-3(2.5)MG/3ML NEB HHN SCH (07:44)
[2023-12-16] MEDS ORDERED: LIDOCAINE HCL 1% 10 MG/ML 10ML VIAL ONE (09:51)
[2023-12-16] MEDS: IPRATROPIUM/ALBUTEROL 0.5-3(2.5)MG/3ML NEB NEB PRN (12:02)
[2023-12-16] MEDS: CEFEPIME 1,000 MG in DEXTROSE 5% WATER 50 ML IV SCH (13:16)
[2023-12-16] MEDS: ENOXAPARIN 40MG/0.4ML SYR SUBCUT SCH (13:16)
[2023-12-16] MEDS: MEROPENEM 1G/100ML 100 ML IV SCH (17:54)
[2023-12-16] MEDS: AZITHROMYCIN 500MG/250ML 250 ML IV SCH (18:42)
[2023-12-16] MEDS ORDERED: DEXTROSE 50% WATER 50ML SYRINGE IV PRN (23:30)
[2023-12-16] MEDS: INSULIN LISPRO 100 UNITS/ML SUBCUT SCH (23:38)
[2023-12-17] VITALS (53 sets, daily range): BP systolic 95–151; BP diastolic 45–116; PULSE 59–83; RESP 12–27; TEMP 97.6–98.2
[2023-12-17] MEDS: BLOOD SUGAR DIAGNOSTIC STRIP TEST SCH
[2023-12-17] MEDS: DIPHENHYDRAMINE 50MG/ML VIAL IV PRN (05:18)
[2023-12-17 05:37] LABS: BASOPHILS % 0.3 % (0.0-2.0); EOSINOPHILS % 4.3 % (0.0-5.0); HEMOGLOBIN. 8.9 g/dL (12.0-16.0); LYMPHOCYTES % 23.6 % (20.0-50.0); MEAN CORPUSCULAR HEMOGLOBIN 29.4 pg (28.0-32.0); MEAN CORPUSCULAR HGB CONC 32.9 g/dL (31.0-37.0); MEAN CORPUSCULAR VOLUME 89.5 fL (81.0-99.0); MEAN PLATELET VOLUME 8.1 fl (7.4-10.4); MONOCYTES % 9.3 % (2.0-8.0); NEUTROPHILS % 62.5 % (40.0-76.0); PLATELET 192 x1000/uL (130-400); RED BLOOD CELL COUNT 3.02 mill/uL (4.2-5.4); RED CELL DISTRIBUTION WIDTH 14.2 % (11.6-14.6)
[2023-12-17 05:56] LABS: CALCIUM 8.1 mg/dL (8.7-10.4); CARBON DIOXIDE 30 mEq/L (21-32); CHLORIDE 102 mEq/L (98-107); CREATININE 0.9 mg/dL (0.6-1.0); GLUCOSE 131 mg/dL (70-105); PHOSPHORUS 2.4 mg/dL (2.5-4.9); SODIUM 138 mEq/L (136-145); UREA NITROGEN BLOOD 30 mg/dL (9-23)
[2023-12-17] MEDS: DEXT 5%/0.45% NACL 1000ML 1,000 ML IV SCH (13:50)
[2023-12-18] VITALS (21 sets, daily range): BP systolic 99–158; BP diastolic 55–110; PULSE 42–89; RESP 12–23; TEMP 97.2–98.5
[2023-12-18] MEDS: THEOPHYLLINE ANHYDROUS 80 MG/15 ML 120ML GT SCH (17:20)
[2023-12-19] VITALS (28 sets, daily range): BP systolic 127–172; BP diastolic 64–115; PULSE 62–111; RESP 14–25; TEMP 97–97.8
[2023-12-19 06:29] LABS: ALBUMIN 3.4 g/dL (3.2-4.8); PREALBUMIN 11.5 mg/dl (10.0-40.0)
== END 2023-12-19 21:27 | DRG 870 ==
LOC: ER 19:00 → CVICU 22:11 → EDBEDREQ 22:23 → EDBEDREQTM 22:23 → EDBEDREQSVC 12-16 02:16 → EDBEDREQDT 12-16 02:16 → EDBEDREQTM 12-16 02:16 → 5EST 12-18 01:16
PROVIDERS: ADMIT Internal Medicine; ATTEND Internal Medicine
PROC: 5A1955Z Respiratory Ventilation, Greater than 96 Consecutive Hours (ICD-10-PCS; principal; 2023-12-15)
PROC: 02HV33Z Insertion of Infusion Device into Superior Vena Cava, Percutaneous Approach (ICD-10-PCS; 2023-12-16)
PROC: B548ZZA Ultrasonography of Superior Vena Cava, Guidance (ICD-10-PCS; 2023-12-16)
DX: A41.51 Sepsis due to Escherichia coli [E. coli] (principal); G93.41 Metabolic encephalopathy; J18.9 Pneumonia, unspecified organism; R65.21 Severe sepsis with septic shock; J96.20 Acute and chronic respiratory failure, unspecified whether with hypoxia or hypercapnia; I13.0 Hypertensive heart and chronic kidney disease with heart failure and stage 1 through stage 4 chronic kidney disease, or unspecified chronic kidney disease; I48.20 Chronic atrial fibrillation, unspecified; I50.32 Chronic diastolic (congestive) heart failure; N39.0 Urinary tract infection, site not specified; Z99.11 Dependence on respirator [ventilator] status; Z20.822 Contact with and (suspected) exposure to COVID-19; F03.C0 Unspecified dementia, severe, without behavioral disturbance, psychotic disturbance, mood disturbance, and anxiety; I25.10 Atherosclerotic heart disease of native coronary artery without angina pectoris; N18.9 Chronic kidney disease, unspecified; L89.156 Pressure-induced deep tissue damage of sacral region; E78.00 Pure hypercholesterolemia, unspecified; K21.9 Gastro-esophageal reflux disease without esophagitis; E11.22 Type 2 diabetes mellitus with diabetic chronic kidney disease; D64.9 Anemia, unspecified; I49.9 Cardiac arrhythmia, unspecified; Z93.0 Tracheostomy status
CPT/HCPCS: 36415; 36573; 36600; 71045; 80048; 80053; 81003; 82040; 82375; 82805; 82962; 83605; 83735; 83880; 84100; 84134; 84145; 84484; 85025; 87070; 87077; 87186; 93005; 94002; 94003; 94640; 99285; C1725; J0456; J0692; J1200; J1265; J1650; J1815; J2185; J2405; J2543; J3370; J3490; J7030; J7060

== ENCOUNTER 2024-01-08 15:29 | Inpatient (IN) | payer MEDICARE ==
[~2024-01-08] VITALS: Ht 167.6 cm; Wt 65.8 kg
[2024-01-08 15:39] VITALS: O2SAT 100
[2024-01-08 15:54] VITALS: PULSE 103; RESP 19
[2024-01-08 16:16] LABS: CLARITY URINE TURBID (CLEAR); COLOR URINE DARK YELLOW (YELLOW); GLUCOSE URINE NEGATIVE (NEGATIVE); KETONES URINE NEGATIVE (NEGATIVE); LEUKOCYTE ESTERASE URINE 2+ (NEGATIVE); NITRITE URINE POSITIVE (NEGATIVE); OCCULT BLOOD URINE 3+ (NEGATIVE); PROTEIN URINE 1+ (NEGATIVE); SPECIFIC GRAVITY URINE 1.017 (1.005-1.030)
[2024-01-08] MEDS: SODIUM CHLORIDE 0.9% 1000ML BAG (SEPSIS BOLUS) IV ONE (16:18)
[2024-01-08] MEDS: PIPERACILLIN/TAZO 3.375G/50ML 50 ML IV ONE (16:19)
[2024-01-08 16:30] LABS: HEMATOCRIT. 30.3 % (36.0-48.0); HEMOGLOBIN. 9.9 g/dL (12.0-16.0); MEAN CORPUSCULAR HEMOGLOBIN 29.1 pg (28.0-32.0); MEAN CORPUSCULAR HGB CONC 32.8 g/dL (31.0-37.0); MEAN CORPUSCULAR VOLUME 88.7 fL (81.0-99.0); MEAN PLATELET VOLUME 7.1 fl (7.4-10.4); PLATELET 354 x1000/uL (130-400); RED BLOOD CELL COUNT 3.41 mill/uL (4.2-5.4); RED CELL DISTRIBUTION WIDTH 14.5 % (11.6-14.6); WHITE BLOOD COUNT 12.7 x1000/uL (4.5-11.0)
[2024-01-08 16:32] LABS: DIFFERENTIAL COMMENT 1
[2024-01-08 16:37] LABS: BACTERIA URINE 2+; RBC URINE TNTC /hpf (0-2); SQUAMOUS EPITHELIAL CELL URINE 1+ /lpf (RARE/1+)
[2024-01-08 16:38] LABS: WBC URINE 15-25 /hpf (0-2)
[2024-01-08 16:38] LABS: INR 0.9; PROTHROMBIN TIME 10.6 sec (9.6-11.0)
[2024-01-08] MEDS: VANCOMYCIN 1G PREMIX 200 ML IV ONE (16:45)
[2024-01-08 16:47] LABS: BG BASE EXCESS 7.4 mmol/L (-2.0-2.0); BG CARBOXYHEMOGLOBIN 0.1 % (0.5-1.5); BG DEOXYHEMOGLOBIN 0.5 % (0.0-5.0); BG HCO3 ACT 34.7 mmol/L (22.0-26.0); BG METHEMOGLOBIN 0.3 % (0.0-1.5); BG OXYGEN SATURATION 99.5 % (92.0-98.5); BG OXYHEMOGLOBIN 99.1 % (94.0-97.0); BG PCO2 63.2 mmHg (35.0-45.0); BG PH 7.357 (7.350-7.450); BG PO2 252.4 mmHg (75.0-100.0); BG SAMPLE SITE RIGHT RADIAL; BG TOTAL HEMOGLOBIN 11.6 g/dL (12.0-18.0); BG VENT MODE VENT - AC
[2024-01-08 16:51] LABS: PLATELET ESTIMATE NORMAL
[2024-01-08 16:57] LABS: ALANINE AMINOTRANSFERASE 24 IU/L (10-49); ALBUMIN 4.3 g/dL (3.2-4.8); ASPARTATE AMINOTRANSFERASE 32 IU/L (<34); BILIRUBIN TOTAL 0.5 mg/dL (0.1-1.0); CALCIUM 9.1 mg/dL (8.7-10.4); CARBON DIOXIDE 35 mEq/L (21-32); CHLORIDE 94 mEq/L (98-107); GLUCOSE 231 mg/dL (70-105); POTASSIUM 3.8 mEq/L (3.5-5.1); PROTEIN TOTAL 7.3 g/dL (6.0-8.3); SODIUM 135 mEq/L (136-145); UREA NITROGEN BLOOD 38 mg/dL (9-23)
[2024-01-08 17:00] LABS: TROPONIN I HIGH SENSITIVITY 56 ng/L (3.0-34)
[2024-01-08 17:50] VITALS: PULSE 103; RESP 24
[2024-01-08 19:30] LABS: TROPONIN I HIGH SENSITIVITY 63 ng/L (3.0-34)
[2024-01-08] MEDS ORDERED: DEXTROSE 50% WATER 50ML SYRINGE IV PRN (19:45)
[2024-01-08] MEDS: SODIUM CHLORIDE 0.45% 1,000 ML IV SCH (19:57)
[2024-01-08 20:10] VITALS: PULSE 104; RESP 20
[2024-01-08 20:51] LABS: TROPONIN I HIGH SENSITIVITY 62 ng/L (3.0-34)
[2024-01-08] MEDS: BLOOD SUGAR DIAGNOSTIC STRIP TEST SCH (22:27)
[2024-01-08] MEDS: INSULIN LISPRO 100 UNITS/ML SUBCUT SCH (22:27)
[2024-01-08] MEDS: IPRATROPIUM/ALBUTEROL 0.5-3(2.5)MG/3ML NEB HHN SCH (22:28)
[2024-01-09] VITALS (21 sets, daily range): BP systolic 111–165; BP diastolic 66–83; PULSE 74–104; RESP 15–27; TEMP 96.1–97.3
[2024-01-09 06:21] LABS: BASOPHILS % 0.5 % (0.0-2.0); EOSINOPHILS % 0.7 % (0.0-5.0); HEMATOCRIT. 28.1 % (36.0-48.0); LYMPHOCYTES % 10.6 % (20.0-50.0); MEAN CORPUSCULAR HEMOGLOBIN 28.7 pg (28.0-32.0); MEAN CORPUSCULAR HGB CONC 32.1 g/dL (31.0-37.0); MEAN CORPUSCULAR VOLUME 89.4 fL (81.0-99.0); MEAN PLATELET VOLUME 7.7 fl (7.4-10.4); MONOCYTES % 8.9 % (2.0-8.0); NEUTROPHILS % 79.3 % (40.0-76.0); PLATELET 280 x1000/uL (130-400); RED BLOOD CELL COUNT 3.14 mill/uL (4.2-5.4); RED CELL DISTRIBUTION WIDTH 14.8 % (11.6-14.6)
[2024-01-09 07:21] LABS: ALANINE AMINOTRANSFERASE 25 IU/L (10-49); ALBUMIN 3.6 g/dL (3.2-4.8); ASPARTATE AMINOTRANSFERASE 50 IU/L (<34); BILIRUBIN TOTAL 0.5 mg/dL (0.1-1.0); CALCIUM 8.5 mg/dL (8.7-10.4); CARBON DIOXIDE 28 mEq/L (21-32); CHLORIDE 100 mEq/L (98-107); CHOLESTEROL 139 mg/dL (<200); CREATININE 0.8 mg/dL (0.6-1.0); GLUCOSE 141 mg/dL (70-105); HDL CHOLESTEROL 48 mg/dL (>65); LDL CHOLESTEROL 69 mg/dL (5-100); POTASSIUM 4.1 mEq/L (3.5-5.1); PROTEIN TOTAL 6.6 g/dL (6.0-8.3); SODIUM 134 mEq/L (136-145); TRIGLYCERIDE 103 mg/dL (0-150); UREA NITROGEN BLOOD 28 mg/dL (9-23)
[2024-01-09] MEDS: METOPROLOL SUCCINATE 25MG ER TABLET PO SCH (10:25)
[2024-01-09] MEDS: METOPROLOL SUCCINATE 25MG ER TABLET PO NR (12:54)
[2024-01-09] MEDS: PIPERACILLIN/TAZO 3.375G/50ML 50 ML IV SCH (13:01)
[2024-01-09 13:24] LABS: BG BASE EXCESS 5.8 mmol/L (-2.0-2.0); BG CARBOXYHEMOGLOBIN 0.3 % (0.5-1.5); BG DEOXYHEMOGLOBIN 1.1 % (0.0-5.0); BG FRACTION INSPIRED OXYGEN 70; BG HCO3 ACT 31.2 mmol/L (22.0-26.0); BG METHEMOGLOBIN 0.3 % (0.0-1.5); BG OXYGEN SATURATION 98.9 % (92.0-98.5); BG OXYHEMOGLOBIN 98.3 % (94.0-97.0); BG PCO2 50.2 mmHg (35.0-45.0); BG PH 7.412 (7.350-7.450); BG PO2 175.6 mmHg (75.0-100.0); BG SAMPLE SITE RIGHT RADIAL; BG TOTAL HEMOGLOBIN 10.1 g/dL (12.0-18.0); BG VENT MODE VENT - AC
[2024-01-09] MEDS: IPRATROPIUM/ALBUTEROL 0.5-3(2.5)MG/3ML NEB HHN SCH (15:50)
[2024-01-09] MEDS: VANCOMYCIN 500MG/100ML IV SCH (17:40)
[2024-01-09] MEDS: ENOXAPARIN 40MG/0.4ML SYR SUBCUT SCH (17:41)
[2024-01-09] MEDS: LORAZEPAM 2MG/ML INJ IV NR (18:32)
[2024-01-09] MEDS: BUDESONIDE 0.5MG/2ML NEB HHN SCH (21:13)
[2024-01-10] VITALS (20 sets, daily range): BP systolic 98–171; BP diastolic 46–102; PULSE 62–103; RESP 14–20; TEMP 97.6–97.9
[2024-01-10] MEDS: ACETYLCYSTEINE 200MG/ML 20% VIAL 4ML INH SCH (01:00)
[2024-01-10] MEDS ORDERED: SODIUM BICARBONATE 4% (2.4MEQ) 5ML VIAL IV ONE (07:47)
[2024-01-10] MEDS ORDERED: CLON0.1T MT (08:51)
[2024-01-10] MEDS ORDERED: METO25TA6 MT (08:51)
[2024-01-10] MEDS ORDERED: AMIN30LI51 PEG (08:51)
[2024-01-10] MEDS ORDERED: LISI20TA31 MT (08:51)
[2024-01-10] MEDS ORDERED: THEOPHYLLINE PEG (08:51)
[2024-01-10] MEDS ORDERED: ASCO500C18 MT (08:51)
[2024-01-10] MEDS ORDERED: CRAN3875 PO (08:51)
[2024-01-10] MEDS ORDERED: METO2.5T2 MT (08:51)
[2024-01-10] MEDS ORDERED: DEXTL MT (08:51)
[2024-01-10] MEDS: METOPROLOL SUCCINATE 50MG ER TABLET PO SCH (09:00)
[2024-01-10 09:11] LABS: BG BASE EXCESS 9.3 mmol/L (-2.0-2.0); BG CARBOXYHEMOGLOBIN 0.3 % (0.5-1.5); BG DEOXYHEMOGLOBIN 1.1 % (0.0-5.0); BG FRACTION INSPIRED OXYGEN 50; BG METHEMOGLOBIN 0.4 % (0.0-1.5); BG OXYGEN SATURATION 98.9 % (92.0-98.5); BG OXYHEMOGLOBIN 98.2 % (94.0-97.0); BG PCO2 54.4 mmHg (35.0-45.0); BG PH 7.426 (7.350-7.450); BG PO2 195.7 mmHg (75.0-100.0); BG SAMPLE SITE LEFT RADIAL; BG TOTAL HEMOGLOBIN 9.8 g/dL (12.0-18.0); BG VENT MODE VENT - AC
[2024-01-10] MEDS: METOPROLOL TARTRATE 25MG TABLET PO SCH (11:55)
[2024-01-10] MEDS: BLOOD SUGAR DIAGNOSTIC STRIP TEST SCH (11:56)
[2024-01-10] MEDS: INSULIN LISPRO 100 UNITS/ML SUBCUT SCH (11:56)
[2024-01-10] MEDS: LORAZEPAM 2MG/ML INJ IV PRN (21:39)
[2024-01-11] VITALS (21 sets, daily range): BP systolic 89–172; BP diastolic 42–94; PULSE 59–106; RESP 14–27; TEMP 97.2–98
[2024-01-11 07:12] LABS: CALCIUM 9.3 mg/dL (8.7-10.4); CREATININE 0.9 mg/dL (0.6-1.0); POTASSIUM 4.5 mEq/L (3.5-5.1)
[2024-01-11] MEDS ORDERED: VANCOMYCIN 750MG/150ML IV SCH (17:00)
[2024-01-11] MEDS ORDERED: MERO500P IV (20:57)
[2024-01-11] MEDS: MEROPENEM 500MG/50ML 50 ML IV SCH (22:00)
[2024-01-12] VITALS (27 sets, daily range): BP systolic 95–178; BP diastolic 41–115; PULSE 69–145; RESP 13–33; TEMP 97.8–98.5
[2024-01-12] LABS: BASOPHILS % 0.9 % (0.0-2.0); EOSINOPHILS % 3.8 % (0.0-5.0); HEMATOCRIT. 28.2 % (36.0-48.0); HEMOGLOBIN. 9.3 g/dL (12.0-16.0); LYMPHOCYTES % 16.7 % (20.0-50.0); MEAN CORPUSCULAR HEMOGLOBIN 29.6 pg (28.0-32.0); MEAN CORPUSCULAR HGB CONC 33.2 g/dL (31.0-37.0); MEAN CORPUSCULAR VOLUME 89.3 fL (81.0-99.0); MEAN PLATELET VOLUME 7.3 fl (7.4-10.4); MONOCYTES % 9.7 % (2.0-8.0); NEUTROPHILS % 68.9 % (40.0-76.0); PLATELET 249 x1000/uL (130-400); RED BLOOD CELL COUNT 3.16 mill/uL (4.2-5.4); RED CELL DISTRIBUTION WIDTH 14.7 % (11.6-14.6); WHITE BLOOD COUNT 7.1 x1000/uL (4.5-11.0)
[2024-01-12 00:22] LABS: ALANINE AMINOTRANSFERASE 23 IU/L (10-49); ALBUMIN 3.7 g/dL (3.2-4.8); ASPARTATE AMINOTRANSFERASE 26 IU/L (<34); BILIRUBIN TOTAL 0.4 mg/dL (0.1-1.0); CALCIUM 8.8 mg/dL (8.7-10.4); CARBON DIOXIDE 37 mEq/L (21-32); CHLORIDE 101 mEq/L (98-107); CREATININE 0.8 mg/dL (0.6-1.0); GLUCOSE 188 mg/dL (70-105); PROTEIN TOTAL 6.1 g/dL (6.0-8.3); SODIUM 142 mEq/L (136-145); UREA NITROGEN BLOOD 23 mg/dL (9-23)
[2024-01-12] MEDS: MEROPENEM 1G/100ML IV SCH (21:20)
[2024-01-13] VITALS (26 sets, daily range): BP systolic 99–161; BP diastolic 50–111; PULSE 72–99; RESP 14–25; TEMP 98.2–99.2
[2024-01-13 18:51] LABS: BASOPHILS % 0.6 % (0.0-2.0); EOSINOPHILS % 3.1 % (0.0-5.0); HEMATOCRIT. 27.9 % (36.0-48.0); HEMOGLOBIN. 9.2 g/dL (12.0-16.0); LYMPHOCYTES % 10.6 % (20.0-50.0); MEAN CORPUSCULAR HEMOGLOBIN 29.7 pg (28.0-32.0); MEAN CORPUSCULAR HGB CONC 32.9 g/dL (31.0-37.0); MEAN CORPUSCULAR VOLUME 90.2 fL (81.0-99.0); MEAN PLATELET VOLUME 7.2 fl (7.4-10.4); MONOCYTES % 7.1 % (2.0-8.0); NEUTROPHILS % 78.6 % (40.0-76.0); PLATELET 293 x1000/uL (130-400); RED BLOOD CELL COUNT 3.09 mill/uL (4.2-5.4); RED CELL DISTRIBUTION WIDTH 14.8 % (11.6-14.6); WHITE BLOOD COUNT 9.2 x1000/uL (4.5-11.0)
[2024-01-14] VITALS (20 sets, daily range): BP systolic 97–167; BP diastolic 43–112; PULSE 72–96; RESP 14–25; TEMP 97.8–98.7
[2024-01-14] MEDS: IPRATROPIUM/ALBUTEROL 0.5-3(2.5)MG/3ML NEB HHN PRN (15:40)
== END 2024-01-14 17:35 | DRG 870 ==
LOC: ER 15:29 → 5EST 17:07 → EDBEDREQSVC 17:09 → EDBEDREQ 17:09
PROVIDERS: ADMIT Family Medicine; ATTEND Family Medicine
PROC: 5A1955Z Respiratory Ventilation, Greater than 96 Consecutive Hours (ICD-10-PCS; principal; 2024-01-08)
PROC: 0W993ZZ Drainage of Right Pleural Cavity, Percutaneous Approach (ICD-10-PCS; 2024-01-10)
DX: A41.9 Sepsis, unspecified organism (principal); J96.21 Acute and chronic respiratory failure with hypoxia; J69.0 Pneumonitis due to inhalation of food and vomit; N39.0 Urinary tract infection, site not specified; G93.40 Encephalopathy, unspecified; I50.32 Chronic diastolic (congestive) heart failure; I13.0 Hypertensive heart and chronic kidney disease with heart failure and stage 1 through stage 4 chronic kidney disease, or unspecified chronic kidney disease; I48.19 Other persistent atrial fibrillation; Z99.11 Dependence on respirator [ventilator] status; R13.10 Dysphagia, unspecified; K21.9 Gastro-esophageal reflux disease without esophagitis; E11.22 Type 2 diabetes mellitus with diabetic chronic kidney disease; E78.00 Pure hypercholesterolemia, unspecified; F03.90 Unspecified dementia, unspecified severity, without behavioral disturbance, psychotic disturbance, mood disturbance, and anxiety; I25.10 Atherosclerotic heart disease of native coronary artery without angina pectoris; I49.5 Sick sinus syndrome; Z79.899 Other long term (current) drug therapy; Z79.4 Long term (current) use of insulin; Z93.0 Tracheostomy status; Z93.1 Gastrostomy status
CPT/HCPCS: 32555; 36415; 36600; 71045; 80048; 80053; 80061; 80202; 81003; 82375; 82805; 82962; 83036; 83605; 83880; 84145; 84484; 85025; 87077; 87106; 87186; 93005; 94002; 94003; 94640; 99291; A6261; J1650; J1815; J2060; J2185; J2543; J3370; J3490; J7030; J7608; J7626

== ENCOUNTER 2024-10-31 05:51 | Inpatient (IN) | payer MEDICAID, MEDICARE ==
[2024-10-31] VITALS (9 sets, daily range): PULSE 74–143; RESP 15–30; O2SAT 94–100
[~2024-10-31] VITALS: Ht 157.5 cm; Wt 75.8 kg
[~2024-10-31 05:51] MED LIST changes: +AMIN30LI51 PEG; +ASCO500C18 MT; +CLON0.1T MT; +CRAN3875 PO; +DEXTL MT; +LISI20TA31 MT; +MERO500P IV; -METO-396 PO; +METO2.5T2 MT; +METO25TA6 MT; -PANT40SU MT; -SPIR25TA PO; +THEOPHYLLINE PEG
[2024-10-31] MEDS: SODIUM CHLORIDE 0.9% (SEPSIS BOLUS) IV ONE ×2 (07:12→08:05)
[2024-10-31 07:24] LABS: CHLORIDE 88 mEq/L (98-107); POTASSIUM 3.7 mEq/L (3.5-5.1); SODIUM 140 mEq/L (136-145)
[2024-10-31 07:25] LABS: CALCIUM 9.7 mg/dL (8.7-10.4)
[2024-10-31 07:28] LABS: INR 1.1; PROTHROMBIN TIME 12.2 sec (9.6-11.0)
[2024-10-31 07:30] LABS: GLUCOSE 87 mg/dL (70-105); UREA NITROGEN BLOOD 36 mg/dL (9-23)
[2024-10-31 07:32] LABS: ALANINE AMINOTRANSFERASE 13 IU/L (10-49); ALBUMIN 3.3 g/dL (3.2-4.8); ASPARTATE AMINOTRANSFERASE 23 IU/L (<34); BILIRUBIN DIRECT 0.3 mg/dL (<=3.0)
[2024-10-31 07:33] LABS: BILIRUBIN TOTAL 0.6 mg/dL (0.1-1.0); PROTEIN TOTAL 6.9 g/dL (6.0-8.3)
[2024-10-31 07:35] LABS: CREATININE 1.8 mg/dL (0.6-1.0)
[2024-10-31 07:39] LABS: TROPONIN I HIGH SENSITIVITY 53 ng/L (3.0-34)
[2024-10-31 07:40] LABS: CARBON DIOXIDE > 40 mEq/L (21-32)
[2024-10-31] MEDS: PIPERACILLIN/TAZO 3.375G/50ML 50 ML IV ONE (07:55)
[2024-10-31] MEDS: NOREPINEPHRINE 8MG/250ML PMX 250 ML IV STA (07:56)
[2024-10-31] MEDS: ACETAMINOPHEN 1000MG/100ML 100 ML IV ONE (08:05)
[2024-10-31] MEDS: VANCOMYCIN 1G PREMIX 200 ML IV ONE (08:05)
[2024-10-31] MEDS ORDERED: VASOPRESSIN 20 UNIT in SODIUM CHLORIDE 0.9% 99 ML IV PRN (09:00)
[2024-10-31] MEDS: SODIUM CHLORIDE 0.9% 1,000 ML IV ONE (09:00)
[2024-10-31] MEDS ORDERED: PHENYLEPHRINE 50MG/250ML PMX 250 ML IV PRN (09:00)
[2024-10-31 09:16] LABS: BASOPHILS % 0.6 % (0.0-2.0); EOSINOPHILS % 0.2 % (0.0-5.0); HEMATOCRIT. 28.3 % (36.0-48.0); LYMPHOCYTES % 7.4 % (20.0-50.0); MEAN CORPUSCULAR HEMOGLOBIN 27.5 pg (28.0-32.0); MEAN CORPUSCULAR HGB CONC 31.9 g/dL (31.0-37.0); MEAN CORPUSCULAR VOLUME 86.3 fL (81.0-99.0); MEAN PLATELET VOLUME 7.5 fl (7.4-10.4); MONOCYTES % 4.6 % (2.0-8.0); NEUTROPHILS % 87.2 % (40.0-76.0); PLATELET 299 x1000/uL (130-400); RED BLOOD CELL COUNT 3.28 mill/uL (4.2-5.4); RED CELL DISTRIBUTION WIDTH 16.2 % (11.6-14.6); WHITE BLOOD COUNT 12.7 x1000/uL (4.5-11.0)
[2024-10-31] MEDS ORDERED: LACTATED RINGERS 1,000 ML IV SCH (09:30)
[2024-10-31 10:14] LABS: BG CARBOXYHEMOGLOBIN 0.4 % (0.5-1.5); BG DEOXYHEMOGLOBIN 15.3 % (0.0-5.0); BG FRACTION INSPIRED OXYGEN 70; BG HCO3 ACT 36.1 mmol/L (21.0-28.0); BG METHEMOGLOBIN 0.5 % (0.5-1.5); BG OXYGEN SATURATION 84.6 % (94.0-98.0); BG OXYHEMOGLOBIN 83.8 % (94.0-98.0); BG PH 7.362 (7.350-7.450); BG PO2 52.9 mmHg (83.0-108.0); BG SAMPLE SITE RIGHT RADIAL; BG TOTAL HEMOGLOBIN 9.7 g/dL (12.0-16.0); BG VENT MODE VENT - AC
[2024-10-31] MEDS: PHENYLEPHRINE 50 MG in DEXTROSE 5% WATER 250 ML IV PRN (10:16)
[2024-10-31] MEDS: LIDOCAINE HCL 1% 10 MG/ML 10ML VIAL ONE (11:09)
[2024-10-31] MEDS: LACTATED RINGERS 1,000 ML IV SCH (11:09)
[2024-10-31] MEDS ORDERED: MEROPENEM 1G/100ML 100 ML IV SCH (11:45)
[2024-10-31] MEDS: MEROPENEM 500MG/50ML IV SCH (13:29)
[2024-10-31] MEDS ORDERED: DILTIAZEM HCL 125 MG in DEXT 5% WATER 100 ML IV PRN (14:00)
[2024-10-31] MEDS: AZITHROMYCIN 500MG/250ML 250 ML IV SCH (14:09)
[2024-10-31] MEDS: INSULIN LISPRO 100 UNITS/ML SUBCUT SCH (14:30)
[2024-10-31 14:52] LABS: BG BASE EXCESS 6.8 mmol/L (-2.0-3.0); BG CARBOXYHEMOGLOBIN 0.4 % (0.5-1.5); BG DEOXYHEMOGLOBIN 0.7 % (0.0-5.0); BG FRACTION INSPIRED OXYGEN 100; BG HCO3 ACT 32.6 mmol/L (21.0-28.0); BG METHEMOGLOBIN 0.1 % (0.5-1.5); BG OXYGEN SATURATION 99.3 % (94.0-98.0); BG OXYHEMOGLOBIN 98.8 % (94.0-98.0); BG PCO2 53.6 mmHg (32.0-45.0); BG PH 7.402 (7.350-7.450); BG PO2 160.5 mmHg (83.0-108.0); BG SAMPLE SITE RIGHT RADIAL; BG TOTAL HEMOGLOBIN 9.5 g/dL (12.0-16.0); BG VENT MODE VENT - AC
[2024-10-31] MEDS: BLOOD SUGAR DIAGNOSTIC STRIP TEST SCH (15:17)
[2024-10-31 15:26] LABS: CREATINE KINASE 49 IU/L (34-145)
[2024-10-31 15:31] LABS: TROPONIN I HIGH SENSITIVITY 702 ng/L (3.0-34)
[2024-10-31] MEDS ORDERED: HYDRALAZINE 20MG/ML VIAL IV PRN (18:15)
[2024-10-31] MEDS ORDERED: HYDROCODONE/ACETAMINOPHEN 5/325MG TABLET PO PRN (18:15)
[2024-10-31] MEDS ORDERED: ONDANSETRON HCL 4MG/2ML INJ IV PRN (18:15)
[2024-10-31] MEDS ORDERED: NALOXONE HCL 0.4MG/ML VIAL IV PRN (18:45)
[2024-10-31] MEDS: ENOXAPARIN 80MG/0.8ML SYR SUBCUT SCH (18:45)
[2024-11-01] VITALS (68 sets, daily range): BP systolic 82–146; BP diastolic 37–83; PULSE 72–154; RESP 22–31; TEMP 36.16956–37.3076; O2SAT 99–100
[2024-11-01] MEDS: IPRATROPIUM BROMIDE (0.02%) 0.5MG/2.5ML NEB HHN SCH (08:52)
[2024-11-01] MEDS: PANTOPRAZOLE SODIUM 40 MG/VIAL IV SCH (09:04)
[2024-11-01 09:47] LABS: BG BASE EXCESS 14.8 mmol/L (-2.0-3.0); BG DEOXYHEMOGLOBIN 0.1 % (0.0-5.0); BG FRACTION INSPIRED OXYGEN 100; BG HCO3 ACT 41.7 mmol/L (21.0-28.0); BG METHEMOGLOBIN 0.3 % (0.5-1.5); BG OXYGEN SATURATION 99.9 % (94.0-98.0); BG OXYHEMOGLOBIN 98.6 % (94.0-98.0); BG PCO2 67.2 mmHg (32.0-45.0); BG PH 7.411 (7.350-7.450); BG PO2 244.1 mmHg (83.0-108.0); BG SAMPLE SITE RIGHT RADIAL; BG TOTAL HEMOGLOBIN 9.9 g/dL (12.0-16.0); BG VENT MODE VENT - AC
[2024-11-01] MEDS: DIGOXIN 500MCG/2ML AMP IV NR ×2 (10:28→12:30)
[2024-11-01 11:15] LABS: BASOPHILS % 0.2 % (0.0-2.0); HEMATOCRIT. 26.2 % (36.0-48.0); HEMOGLOBIN. 8.2 g/dL (12.0-16.0); LYMPHOCYTES % 7.6 % (20.0-50.0); MEAN CORPUSCULAR HEMOGLOBIN 26.2 pg (28.0-32.0); MEAN CORPUSCULAR HGB CONC 31.4 g/dL (31.0-37.0); MEAN CORPUSCULAR VOLUME 83.5 fL (81.0-99.0); MEAN PLATELET VOLUME 6.9 fl (7.4-10.4); MONOCYTES % 5.1 % (2.0-8.0); NEUTROPHILS % 86.1 % (40.0-76.0); PLATELET 350 x1000/uL (130-400); RED BLOOD CELL COUNT 3.13 mill/uL (4.2-5.4); RED CELL DISTRIBUTION WIDTH 16.4 % (11.6-14.6); WHITE BLOOD COUNT 14.3 x1000/uL (4.5-11.0)
[2024-11-01 11:22] LABS: POTASSIUM 3.6 mEq/L (3.5-5.1)
[2024-11-01 11:23] LABS: CALCIUM 8.5 mg/dL (8.7-10.4)
[2024-11-01 11:28] LABS: CREATININE 1.9 mg/dL (0.6-1.0)
[2024-11-01] MEDS: DILTIAZEM HCL 125 MG in DEXT 5% WATER 100 ML IV PRN (11:39)
[2024-11-01 12:06] LABS: TROPONIN I HIGH SENSITIVITY 776 ng/L (3.0-34)
[2024-11-01] MEDS ORDERED: DIGOXIN 500MCG/2ML AMP IV NR (14:00)
[2024-11-01] MEDS: AZITHROMYCIN 500MG/250ML 250 ML IV SCH (16:25)
[2024-11-01] MEDS: DIGOXIN 500MCG/2ML AMP IV SCH (17:35)
[2024-11-01 18:02] LABS: CREATINE KINASE MB FRACTION < 0.5 ng/mL (0.5-3.6)
[2024-11-01 18:03] LABS: CREATINE KINASE 21 IU/L (34-145)
[2024-11-01 18:19] LABS: TROPONIN I HIGH SENSITIVITY 564 ng/L (3.0-34)
[2024-11-02] VITALS (102 sets, daily range): BP systolic 93–150; BP diastolic 40–90; PULSE 62–109; RESP 14–32; TEMP 36.3918–37.28076; O2SAT 90–100
[2024-11-02 05:57] LABS: BASOPHILS % 0.3 % (0.0-2.0); EOSINOPHILS % 1.3 % (0.0-5.0); HEMATOCRIT. 27.8 % (36.0-48.0); HEMOGLOBIN. 8.8 g/dL (12.0-16.0); LYMPHOCYTES % 7.7 % (20.0-50.0); MEAN CORPUSCULAR HEMOGLOBIN 27.1 pg (28.0-32.0); MEAN CORPUSCULAR HGB CONC 31.8 g/dL (31.0-37.0); MEAN CORPUSCULAR VOLUME 85.3 fL (81.0-99.0); MEAN PLATELET VOLUME 7.4 fl (7.4-10.4); MONOCYTES % 4.3 % (2.0-8.0); NEUTROPHILS % 86.4 % (40.0-76.0); PLATELET 319 x1000/uL (130-400); RED BLOOD CELL COUNT 3.26 mill/uL (4.2-5.4); RED CELL DISTRIBUTION WIDTH 16.7 % (11.6-14.6); WHITE BLOOD COUNT 19.1 x1000/uL (4.5-11.0)
[2024-11-02 06:15] LABS: CALCIUM 8.6 mg/dL (8.7-10.4); CARBON DIOXIDE 38 mEq/L (21-32); CHLORIDE 92 mEq/L (98-107); POTASSIUM 3.7 mEq/L (3.5-5.1); SODIUM 138 mEq/L (136-145)
[2024-11-02 06:21] LABS: CREATININE 1.7 mg/dL (0.6-1.0); GLUCOSE 98 mg/dL (70-105); UREA NITROGEN BLOOD 45 mg/dL (9-23)
[2024-11-02 08:13] LABS: TROPONIN I HIGH SENSITIVITY 281 ng/L (3.0-34)
[2024-11-02 11:16] LABS: BG BASE EXCESS 13.1 mmol/L (-2.0-3.0); BG CARBOXYHEMOGLOBIN 0.1 % (0.5-1.5); BG DEOXYHEMOGLOBIN 1.6 % (0.0-5.0); BG FRACTION INSPIRED OXYGEN 80; BG HCO3 ACT 40.3 mmol/L (21.0-28.0); BG METHEMOGLOBIN 0.3 % (0.5-1.5); BG OXYGEN SATURATION 98.4 % (94.0-98.0); BG PCO2 70.7 mmHg (32.0-45.0); BG PH 7.374 (7.350-7.450); BG PO2 112.7 mmHg (83.0-108.0); BG SAMPLE SITE RIGHT RADIAL; BG TOTAL HEMOGLOBIN 8.8 g/dL (12.0-16.0); BG VENT MODE VENT - AC
[2024-11-02 14:19] LABS: CLARITY URINE TURBID (CLEAR); COLOR URINE DARK YELLOW (YELLOW); GLUCOSE URINE NEGATIVE (NEGATIVE); KETONES URINE NEGATIVE (NEGATIVE); LEUKOCYTE ESTERASE URINE 3+ (NEGATIVE); NITRITE URINE POSITIVE (NEGATIVE); OCCULT BLOOD URINE 3+ (NEGATIVE); PH URINE 5.5 (4.5-8.0); PROTEIN URINE 3+ (NEGATIVE); SPECIFIC GRAVITY URINE 1.024 (1.005-1.030)
[2024-11-02 14:53] LABS: BACTERIA URINE 4+; SQUAMOUS EPITHELIAL CELL URINE 3+ /lpf (RARE/1+); URIC ACID CRYSTALS URINE 1+ /lpf; YEAST URINE NONE SEEN
[2024-11-02] MEDS: FENTANYL CITRATE/PF 1,000 MCG in SODIUM CHLORIDE 0.9% 80 ML IV PRN (15:49)
[2024-11-02] MEDS: ENOXAPARIN 60MG/0.6ML SYR SUBCUT SCH (17:17)
[2024-11-02] MEDS: GUAIFENESIN 600MG ER TABLET PO SCH (20:11)
[2024-11-02] MEDS ORDERED: AZITHROMYCIN 500MG/250ML 250 ML IV SCH (20:30)
[2024-11-03] VITALS (93 sets, daily range): BP systolic 96–152; BP diastolic 39–87; PULSE 62–98; RESP 11–31; TEMP 36.55848–36.83628; O2SAT 89–100
[2024-11-03 01:15] LABS: BG CARBOXYHEMOGLOBIN 0.7 % (0.5-1.5); BG DEOXYHEMOGLOBIN 0.4 % (0.0-5.0); BG FRACTION INSPIRED OXYGEN 100; BG OXYGEN SATURATION 99.6 % (94.0-98.0); BG OXYHEMOGLOBIN 98.9 % (94.0-98.0); BG PCO2 74.9 mmHg (32.0-45.0); BG PH 7.312 (7.350-7.450); BG PO2 197.5 mmHg (83.0-108.0); BG SAMPLE SITE RIGHT RADIAL; BG TOTAL HEMOGLOBIN 9.6 g/dL (12.0-16.0); BG VENT MODE VENT - AC
[2024-11-03 06:20] LABS: HEMATOCRIT. 25.4 % (36.0-48.0); HEMOGLOBIN. 8.1 g/dL (12.0-16.0); MEAN CORPUSCULAR HEMOGLOBIN 26.8 pg (28.0-32.0); MEAN CORPUSCULAR HGB CONC 32.1 g/dL (31.0-37.0); MEAN CORPUSCULAR VOLUME 83.5 fL (81.0-99.0); PLATELET 299 x1000/uL (130-400); RED BLOOD CELL COUNT 3.04 mill/uL (4.2-5.4); RED CELL DISTRIBUTION WIDTH 16.6 % (11.6-14.6); WHITE BLOOD COUNT 12.8 x1000/uL (4.5-11.0)
[2024-11-03 06:34] LABS: POTASSIUM 3.9 mEq/L (3.5-5.1)
[2024-11-03 06:35] LABS: CALCIUM 8.6 mg/dL (8.7-10.4)
[2024-11-03 06:39] LABS: CREATININE 1.7 mg/dL (0.6-1.0)
[2024-11-03 07:24] LABS: DIFFERENTIAL COMMENT 1
[2024-11-03 10:11] LABS: ANISOCYTOSIS 1+; PLATELET ESTIMATE NORMAL
[2024-11-03] MEDS: QUETIAPINE FUMARATE 25MG TABLET PO SCH (11:13)
[2024-11-03] MEDS: AZITHROMYCIN 500MG/250ML 250 ML IV SCH (15:26)
[2024-11-03] MEDS: DEXTROSE 5% WATER 1,000 ML IV SCH (17:52)
[2024-11-04] VITALS (101 sets, daily range): BP systolic 98–161; BP diastolic 39–60; PULSE 63–95; RESP 8–34; TEMP 36.55848–36.9474; O2SAT 90–99
[2024-11-04 02:01] LABS: BG BASE EXCESS 9.7 mmol/L (-2.0-3.0); BG CARBOXYHEMOGLOBIN 0.3 % (0.5-1.5); BG DEOXYHEMOGLOBIN 1.6 % (0.0-5.0); BG FRACTION INSPIRED OXYGEN 100; BG HCO3 ACT 37.2 mmol/L (21.0-28.0); BG METHEMOGLOBIN 0.1 % (0.5-1.5); BG OXYGEN SATURATION 98.4 % (94.0-98.0); BG PCO2 70.8 mmHg (32.0-45.0); BG PH 7.338 (7.350-7.450); BG PO2 115.9 mmHg (83.0-108.0); BG TOTAL HEMOGLOBIN 9.1 g/dL (12.0-16.0); BG VENT MODE VENT - AC
[2024-11-04 05:58] LABS: BASOPHILS % 0.2 % (0.0-2.0); HEMATOCRIT. 25.8 % (36.0-48.0); HEMOGLOBIN. 8.1 g/dL (12.0-16.0); LYMPHOCYTES % 9.7 % (20.0-50.0); MEAN CORPUSCULAR HEMOGLOBIN 26.5 pg (28.0-32.0); MEAN CORPUSCULAR HGB CONC 31.6 g/dL (31.0-37.0); MEAN CORPUSCULAR VOLUME 83.9 fL (81.0-99.0); MEAN PLATELET VOLUME 7.4 fl (7.4-10.4); MONOCYTES % 7.5 % (2.0-8.0); NEUTROPHILS % 80.6 % (40.0-76.0); PLATELET 282 x1000/uL (130-400); RED BLOOD CELL COUNT 3.07 mill/uL (4.2-5.4); RED CELL DISTRIBUTION WIDTH 16.4 % (11.6-14.6); WHITE BLOOD COUNT 11.3 x1000/uL (4.5-11.0)
[2024-11-04 06:19] LABS: CALCIUM 8.6 mg/dL (8.7-10.4)
[2024-11-04 06:25] LABS: CREATININE 1.8 mg/dL (0.6-1.0)
[2024-11-04] MEDS: METHYLPREDNISOLONE SOD SUCC 125MG/2ML (ACT-O-VIAL) IV NR (08:04)
[2024-11-04] MEDS: DILTIAZEM HCL 30MG TABLET GT SCH (09:43)
[2024-11-04] MEDS: METHYLPREDNISOLONE SOD SUCC 40MG/ML (ACT-O-VIAL) IV SCH (11:16)
[2024-11-05] VITALS (103 sets, daily range): BP systolic 97–166; BP diastolic 36–74; PULSE 60–112; RESP 0–34; TEMP 36.78072–37.2; O2SAT 93–100
[2024-11-05] MEDS: PHENYLEPHRINE 50 MG in SODIUM CHLORIDE 0.9% 245 ML IV PRN (00:51)
[2024-11-05] MEDS: IPRATROPIUM/ALBUTEROL 0.5-3(2.5)MG/3ML NEB NEB PRN (02:30)
[2024-11-05 06:26] LABS: CALCIUM 8.8 mg/dL (8.7-10.4); CARBON DIOXIDE 33 mEq/L (21-32); CHLORIDE 95 mEq/L (98-107); POTASSIUM 5.1 mEq/L (3.5-5.1); SODIUM 138 mEq/L (136-145)
[2024-11-05 06:32] LABS: GLUCOSE 208 mg/dL (70-105); UREA NITROGEN BLOOD 64 mg/dL (9-23)
[2024-11-05 06:42] LABS: HEMATOCRIT. 24.2 % (36.0-48.0); HEMOGLOBIN. 7.8 g/dL (12.0-16.0); MEAN CORPUSCULAR HEMOGLOBIN 27.3 pg (28.0-32.0); MEAN CORPUSCULAR HGB CONC 32.2 g/dL (31.0-37.0); MEAN CORPUSCULAR VOLUME 84.7 fL (81.0-99.0); MEAN PLATELET VOLUME 7.5 fl (7.4-10.4); PLATELET 335 x1000/uL (130-400); RED BLOOD CELL COUNT 2.86 mill/uL (4.2-5.4); RED CELL DISTRIBUTION WIDTH 16.2 % (11.6-14.6); WHITE BLOOD COUNT 10.9 x1000/uL (4.5-11.0)
[2024-11-05 06:45] LABS: CREATININE 2.6 mg/dL (0.6-1.0)
[2024-11-05 06:48] LABS: DIFFERENTIAL COMMENT 1
[2024-11-05] MEDS: SODIUM ZIRCONIUM CYCLOSILICATE 10GM/PACKET PO NR (08:41)
[2024-11-05] MEDS: SCOPOLAMINE HYDROBROMIDE PATCH 72HR TD SCH (08:42)
[2024-11-05 10:40] LABS: BG BASE EXCESS 5.7 mmol/L (-2.0-3.0); BG CARBOXYHEMOGLOBIN 1.4 % (0.5-1.5); BG DEOXYHEMOGLOBIN 0.3 % (0.0-5.0); BG FRACTION INSPIRED OXYGEN 100; BG HCO3 ACT 31.3 mmol/L (21.0-28.0); BG OXYGEN SATURATION 99.7 % (94.0-98.0); BG OXYHEMOGLOBIN 98.3 % (94.0-98.0); BG PCO2 51.9 mmHg (32.0-45.0); BG PH 7.398 (7.350-7.450); BG PO2 215.6 mmHg (83.0-108.0); BG SAMPLE SITE RIGHT RADIAL; BG TOTAL HEMOGLOBIN 7.9 g/dL (12.0-16.0); BG VENT MODE VENT - AC
[2024-11-05] MEDS: SODIUM CHLORIDE 0.45% 1,000 ML IV SCH (11:23)
[2024-11-05 11:58] LABS: BG BASE EXCESS 7.1 mmol/L (-2.0-3.0); BG CARBOXYHEMOGLOBIN 0.6 % (0.5-1.5); BG FRACTION INSPIRED OXYGEN 100; BG HCO3 ACT 32.6 mmol/L (21.0-28.0); BG METHEMOGLOBIN 0.2 % (0.5-1.5); BG OXYHEMOGLOBIN 99.2 % (94.0-98.0); BG PCO2 52.2 mmHg (32.0-45.0); BG PH 7.413 (7.350-7.450); BG PO2 296.7 mmHg (83.0-108.0); BG SAMPLE SITE RIGHT RADIAL; BG TOTAL HEMOGLOBIN 8.5 g/dL (12.0-16.0); BG VENT MODE VENT - AC
[2024-11-05] MEDS: GUAIFENESIN 200MG/10ML SUGAR FREE UDC PO SCH (12:00)
[2024-11-05] MEDS: IPRATROPIUM/ALBUTEROL 0.5-3(2.5)MG/3ML NEB HHN SCH (12:20)
[2024-11-05] MEDS: SODIUM CHLORIDE 3% FOR INH 4ML NEB INH SCH (12:22)
[2024-11-05] MEDS: DILTIAZEM HCL 30MG TABLET GT SCH (14:00)
[2024-11-05] MEDS: METHYLPREDNISOLONE SOD SUCC 40MG/ML (ACT-O-VIAL) IV SCH (14:27)
[2024-11-05 17:30] LABS: ANISOCYTOSIS 1+; HYPOCHROMASIA 1+; PLATELET ESTIMATE NORMAL
[2024-11-05] MEDS: PHENYLEPHRINE 50 MG in DEXT 5% WATER 245 ML IV PRN (18:57)
[2024-11-06] VITALS (80 sets, daily range): BP systolic 108–183; BP diastolic 36–81; PULSE 60–136; RESP 0–28; TEMP 36.2–37.1; O2SAT 96–100
[2024-11-06 06:14] LABS: HEMATOCRIT. 21.2 % (36.0-48.0); MEAN CORPUSCULAR HEMOGLOBIN 26.7 pg (28.0-32.0); MEAN CORPUSCULAR HGB CONC 32.4 g/dL (31.0-37.0); MEAN CORPUSCULAR VOLUME 82.2 fL (81.0-99.0); MEAN PLATELET VOLUME 7.6 fl (7.4-10.4); PLATELET 307 x1000/uL (130-400); RED BLOOD CELL COUNT 2.58 mill/uL (4.2-5.4); RED CELL DISTRIBUTION WIDTH 17.1 % (11.6-14.6); WHITE BLOOD COUNT 7.7 x1000/uL (4.5-11.0)
[2024-11-06 06:50] LABS: DIFFERENTIAL COMMENT 1; HEMOGLOBIN. 6.9 g/dL (12.0-16.0)
[2024-11-06 06:51] LABS: POTASSIUM 4.7 mEq/L (3.5-5.1)
[2024-11-06 06:52] LABS: CALCIUM 8.3 mg/dL (8.7-10.4)
[2024-11-06 06:57] LABS: CREATININE 3.1 mg/dL (0.6-1.0)
[2024-11-06] MEDS ORDERED: DIATR MEGLU/DIATRIZOATE SOLN 30ML ONE (09:18)
[2024-11-06 09:21] LABS: BG BASE EXCESS 8.8 mmol/L (-2.0-3.0); BG CARBOXYHEMOGLOBIN 0.9 % (0.5-1.5); BG DEOXYHEMOGLOBIN 0.9 % (0.0-5.0); BG FRACTION INSPIRED OXYGEN 400; BG HCO3 ACT 34.1 mmol/L (21.0-28.0); BG METHEMOGLOBIN 0.3 % (0.5-1.5); BG OXYGEN SATURATION 99.1 % (94.0-98.0); BG OXYHEMOGLOBIN 97.9 % (94.0-98.0); BG PCO2 52.5 mmHg (32.0-45.0); BG PO2 133.2 mmHg (83.0-108.0); BG TOTAL HEMOGLOBIN 7.2 g/dL (12.0-16.0); BG VENT MODE VENT - AC
[2024-11-06] MEDS: CLONIDINE 0.1MG TABLET PO PRN (10:39)
[2024-11-06 10:57] LABS: ANISOCYTOSIS 1+; PLATELET ESTIMATE NORMAL
[2024-11-06 13:10] LABS: HEMATOCRIT. 21.4 % (36.0-48.0); MEAN CORPUSCULAR HEMOGLOBIN 26.5 pg (28.0-32.0); MEAN CORPUSCULAR VOLUME 82.7 fL (81.0-99.0); MEAN PLATELET VOLUME 7.6 fl (7.4-10.4); PLATELET 290 x1000/uL (130-400); RED BLOOD CELL COUNT 2.59 mill/uL (4.2-5.4); RED CELL DISTRIBUTION WIDTH 16.9 % (11.6-14.6); WHITE BLOOD COUNT 6.8 x1000/uL (4.5-11.0)
[2024-11-06 13:16] LABS: DIFFERENTIAL COMMENT 1
[2024-11-06 13:17] LABS: HEMOGLOBIN. 6.9 g/dL (12.0-16.0)
[2024-11-06] MEDS: DILTIAZEM HCL 30MG TABLET GT SCH (13:19)
[2024-11-06 21:36] LABS: ANISOCYTOSIS 1+; PLATELET ESTIMATE NORMAL
[2024-11-07] VITALS (25 sets, daily range): BP systolic 114–154; BP diastolic 51–77; PULSE 61–104; RESP 16–30; TEMP 36.114–37.2; O2SAT 99–100
[2024-11-07] MEDS: MORPHINE SULFATE 4 MG/ML INJ (FOR IV/IM USE) IV NR (12:37)
[2024-11-07 17:05] LABS: HEMATOCRIT. 26.3 % (36.0-48.0); HEMOGLOBIN. 8.6 g/dL (12.0-16.0); MEAN CORPUSCULAR HEMOGLOBIN 27.3 pg (28.0-32.0); MEAN CORPUSCULAR HGB CONC 32.6 g/dL (31.0-37.0); MEAN CORPUSCULAR VOLUME 83.9 fL (81.0-99.0); MEAN PLATELET VOLUME 7.6 fl (7.4-10.4); PLATELET 283 x1000/uL (130-400); RED BLOOD CELL COUNT 3.14 mill/uL (4.2-5.4); RED CELL DISTRIBUTION WIDTH 16.4 % (11.6-14.6); WHITE BLOOD COUNT 6.5 x1000/uL (4.5-11.0)
[2024-11-07] MEDS: AMPICILLIN SOD/SULBACTAM NA 3 G in SODIUM CHLORIDE 0.9% 100 ML IV SCH (17:06)
[2024-11-07 17:12] LABS: POTASSIUM 4.6 mEq/L (3.5-5.1)
[2024-11-07 17:13] LABS: CALCIUM 8.6 mg/dL (8.7-10.4); DIFFERENTIAL COMMENT 1
[2024-11-07 17:18] LABS: CREATININE 2.3 mg/dL (0.6-1.0)
[2024-11-07 18:27] LABS: ANISOCYTOSIS 1+; PLATELET ESTIMATE NORMAL
[2024-11-07] MEDS: SODIUM CHLORIDE 0.9% IV NR (20:46)
[2024-11-07] MEDS: COLISTIMETHATE SODIUM IV NR (20:46)
[2024-11-08] VITALS (21 sets, daily range): BP systolic 121–169; BP diastolic 46–112; PULSE 59–110; RESP 14–30; TEMP 36.1–36.8; O2SAT 96–100
[2024-11-08] MEDS: INSULIN LISPRO 100 UNITS/ML SUBCUT SCH (01:27)
[2024-11-08 07:34] LABS: BASOPHILS % 0.4 % (0.0-2.0); HEMATOCRIT. 30.3 % (36.0-48.0); HEMOGLOBIN. 9.7 g/dL (12.0-16.0); LYMPHOCYTES % 7.9 % (20.0-50.0); MEAN CORPUSCULAR HEMOGLOBIN 27.2 pg (28.0-32.0); MEAN CORPUSCULAR HGB CONC 31.9 g/dL (31.0-37.0); MEAN CORPUSCULAR VOLUME 85.3 fL (81.0-99.0); MEAN PLATELET VOLUME 7.6 fl (7.4-10.4); MONOCYTES % 5.7 % (2.0-8.0); PLATELET 268 x1000/uL (130-400); RED BLOOD CELL COUNT 3.55 mill/uL (4.2-5.4); RED CELL DISTRIBUTION WIDTH 16.4 % (11.6-14.6)
[2024-11-08 07:48] LABS: CALCIUM 8.9 mg/dL (8.7-10.4); CARBON DIOXIDE 35 mEq/L (21-32); CHLORIDE 99 mEq/L (98-107); POTASSIUM 4.8 mEq/L (3.5-5.1); SODIUM 141 mEq/L (136-145)
[2024-11-08 07:53] LABS: CREATININE 1.9 mg/dL (0.6-1.0); IRON 30 ug/dL (50-170)
[2024-11-08 07:54] LABS: GLUCOSE 222 mg/dL (70-105); UREA NITROGEN BLOOD 69 mg/dL (9-23)
[2024-11-08 07:56] LABS: TOTAL IRON BINDING CAPACITY 140 ug/dl (250-425)
[2024-11-08] MEDS: FUROSEMIDE 40MG/4ML VIAL IVP SCH (10:02)
[2024-11-08] MEDS ORDERED: DIATR MEGLU/DIATRIZOATE SOLN 30ML PO SCH (13:30)
[2024-11-08] MEDS ORDERED: DIATR MEGLU/DIATRIZOATE SOLN 30ML ONE (13:34)
[2024-11-08] MEDS: COLISTIMETHATE SODIUM IV SCH (20:34)
[2024-11-08] MEDS: SODIUM CHLORIDE 0.9% IV SCH (20:34)
[2024-11-09] VITALS (22 sets, daily range): BP systolic 137–165; BP diastolic 53–81; PULSE 70–107; RESP 14–25; TEMP 36.3–37; O2SAT 95–100
[2024-11-09 06:16] LABS: HEMATOCRIT. 30.6 % (36.0-48.0); HEMOGLOBIN. 9.8 g/dL (12.0-16.0); MEAN CORPUSCULAR HEMOGLOBIN 27.6 pg (28.0-32.0); MEAN CORPUSCULAR HGB CONC 31.9 g/dL (31.0-37.0); MEAN CORPUSCULAR VOLUME 86.5 fL (81.0-99.0); MEAN PLATELET VOLUME 7.6 fl (7.4-10.4); PLATELET 271 x1000/uL (130-400); RED BLOOD CELL COUNT 3.54 mill/uL (4.2-5.4); RED CELL DISTRIBUTION WIDTH 16.9 % (11.6-14.6)
[2024-11-09] MEDS: HYDRALAZINE 20MG/ML VIAL IV PRN (06:33)
[2024-11-09 06:39] LABS: POTASSIUM 4.6 mEq/L (3.5-5.1)
[2024-11-09 06:40] LABS: CALCIUM 8.9 mg/dL (8.7-10.4)
[2024-11-09 06:45] LABS: CREATININE 1.5 mg/dL (0.6-1.0)
[2024-11-09 06:54] LABS: DIFFERENTIAL COMMENT 1
[2024-11-09 11:04] LABS: ANISOCYTOSIS 1+; PLATELET ESTIMATE NORMAL
[2024-11-10] VITALS (20 sets, daily range): BP systolic 117–182; BP diastolic 57–95; PULSE 84–117; RESP 14–29; TEMP 36.1–36.6; O2SAT 88–99
[2024-11-10 08:54] LABS: INR 1.1; PROTHROMBIN TIME 12.5 sec (9.6-11.0)
[2024-11-10 08:55] LABS: CARBON DIOXIDE 35 mEq/L (21-32); CHLORIDE 102 mEq/L (98-107); POTASSIUM 4.7 mEq/L (3.5-5.1); SODIUM 149 mEq/L (136-145)
[2024-11-10 08:58] LABS: HEMATOCRIT. 29.8 % (36.0-48.0); HEMOGLOBIN. 9.3 g/dL (12.0-16.0); MEAN CORPUSCULAR HEMOGLOBIN 27.2 pg (28.0-32.0); MEAN CORPUSCULAR HGB CONC 31.3 g/dL (31.0-37.0); MEAN PLATELET VOLUME 7.9 fl (7.4-10.4); PLATELET 361 x1000/uL (130-400); RED BLOOD CELL COUNT 3.43 mill/uL (4.2-5.4); RED CELL DISTRIBUTION WIDTH 17.2 % (11.6-14.6)
[2024-11-10 09:00] LABS: CREATININE 1.2 mg/dL (0.6-1.0); GLUCOSE 304 mg/dL (70-105)
[2024-11-10 09:01] LABS: ALANINE AMINOTRANSFERASE 12 IU/L (10-49); ALBUMIN 3.1 g/dL (3.2-4.8); ASPARTATE AMINOTRANSFERASE 21 IU/L (<34); UREA NITROGEN BLOOD 76 mg/dL (9-23)
[2024-11-10 09:01] LABS: POTASSIUM 4.3 mEq/L (3.5-5.1)
[2024-11-10 09:02] LABS: BILIRUBIN TOTAL 0.5 mg/dL (0.1-1.0)
[2024-11-10 09:03] LABS: CALCIUM 9.2 mg/dL (8.7-10.4)
[2024-11-10 09:03] LABS: PROTEIN TOTAL 6.6 g/dL (6.0-8.3)
[2024-11-10 09:04] LABS: DIFFERENTIAL COMMENT 1
[2024-11-10 09:07] LABS: CREATININE 1.2 mg/dL (0.6-1.0)
[2024-11-10 15:16] LABS: BG BASE EXCESS 17.6 mmol/L (-2.0-3.0); BG CARBOXYHEMOGLOBIN 0.3 % (0.5-1.5); BG DEOXYHEMOGLOBIN 5.1 % (0.0-5.0); BG FRACTION INSPIRED OXYGEN 100; BG HCO3 ACT 50.4 mmol/L (21.0-28.0); BG OXYGEN SATURATION 94.9 % (94.0-98.0); BG OXYHEMOGLOBIN 94.6 % (94.0-98.0); BG PO2 82.5 mmHg (83.0-108.0); BG SAMPLE SITE RIGHT RADIAL; BG TOTAL HEMOGLOBIN 10.3 g/dL (12.0-16.0); BG VENT MODE VENT - P/C
[2024-11-10 15:50] LABS: ANISOCYTOSIS 1+; PLATELET ESTIMATE NORMAL
[2024-11-10 22:51] LABS: BG BASE EXCESS 14.9 mmol/L (-2.0-3.0); BG CARBOXYHEMOGLOBIN 0.2 % (0.5-1.5); BG DEOXYHEMOGLOBIN 8.2 % (0.0-5.0); BG FRACTION INSPIRED OXYGEN 100; BG METHEMOGLOBIN 0.3 % (0.5-1.5); BG OXYGEN SATURATION 91.8 % (94.0-98.0); BG OXYHEMOGLOBIN 91.3 % (94.0-98.0); BG PCO2 69.7 mmHg (32.0-45.0); BG PH 7.398 (7.350-7.450); BG PO2 60.3 mmHg (83.0-108.0); BG SAMPLE SITE RIGHT RADIAL; BG TOTAL HEMOGLOBIN 9.6 g/dL (12.0-16.0); BG TOTAL RESPIRATORY RATE 27 b/min; BG VENT MODE VENT - P/C
[2024-11-11] VITALS (24 sets, daily range): BP systolic 96–144; BP diastolic 37–67; PULSE 74–103; RESP 17–32; TEMP 35.7–37.2; O2SAT 94–100
[2024-11-11 07:10] LABS: CHLORIDE 104 mEq/L (98-107); POTASSIUM 3.8 mEq/L (3.5-5.1); SODIUM 153 mEq/L (136-145)
[2024-11-11 07:12] LABS: CALCIUM 9.4 mg/dL (8.7-10.4)
[2024-11-11 07:14] LABS: CREATININE 1.2 mg/dL (0.6-1.0)
[2024-11-11 07:16] LABS: GLUCOSE 220 mg/dL (70-105); UREA NITROGEN BLOOD 75 mg/dL (9-23)
[2024-11-11 08:12] LABS: CARBON DIOXIDE > 40 mEq/L (21-32)
[2024-11-11 09:39] LABS: HEMATOCRIT. 27.6 % (36.0-48.0); HEMOGLOBIN. 8.5 g/dL (12.0-16.0); MEAN CORPUSCULAR HEMOGLOBIN 26.8 pg (28.0-32.0); MEAN CORPUSCULAR HGB CONC 30.9 g/dL (31.0-37.0); MEAN CORPUSCULAR VOLUME 86.7 fL (81.0-99.0); MEAN PLATELET VOLUME 8.2 fl (7.4-10.4); PLATELET 246 x1000/uL (130-400); RED BLOOD CELL COUNT 3.19 mill/uL (4.2-5.4); RED CELL DISTRIBUTION WIDTH 17.5 % (11.6-14.6); WHITE BLOOD COUNT 31.4 x1000/uL (4.5-11.0)
[2024-11-11 09:49] LABS: DIFFERENTIAL COMMENT 1
[2024-11-11 10:08] LABS: BG BASE EXCESS 13.8 mmol/L (-2.0-3.0); BG DEOXYHEMOGLOBIN 4.4 % (0.0-5.0); BG FRACTION INSPIRED OXYGEN 100; BG HCO3 ACT 43.7 mmol/L (21.0-28.0); BG METHEMOGLOBIN 0.3 % (0.5-1.5); BG OXYGEN SATURATION 95.6 % (94.0-98.0); BG OXYHEMOGLOBIN 95.3 % (94.0-98.0); BG PCO2 96.3 mmHg (32.0-45.0); BG PH 7.275 (7.350-7.450); BG PO2 85.4 mmHg (83.0-108.0); BG SAMPLE SITE LEFT RADIAL; BG TOTAL HEMOGLOBIN 10.2 g/dL (12.0-16.0); BG VENT MODE VENT - P/C
[2024-11-11] MEDS: SODIUM CHLORIDE 0.45% 1,000 ML IV SCH (15:41)
[2024-11-11] MEDS: LACTOBACILLUS GG CAPSULE PO SCH (17:30)
[2024-11-11] MEDS: AMPICILLIN/SULBACTAM 3G in SODIUM CHLORIDE 0.9% 100ML IV SCH (18:59)
[2024-11-11] MEDS: VANCOMYCIN 1.25GM PMX (XELLIA) 250 ML IV NR (20:37)
[2024-11-11] MEDS: COLISTIMETHATE SODIUM IV SCH (20:58)
[2024-11-11] MEDS: SODIUM CHLORIDE 0.9% IV SCH (20:58)
[2024-11-11 21:09] LABS: ANISOCYTOSIS 1+; PLATELET ESTIMATE NORMAL
[2024-11-11] MEDS ORDERED: AMPICILLIN SOD/SULBACTAM NA 6 G in SODIUM CHLORIDE 0.9% 200 ML IV SCH (22:00)
[2024-11-12] VITALS (17 sets, daily range): BP systolic 101–160; BP diastolic 47–88; PULSE 65–102; RESP 19–34; TEMP 35.6–36.5; O2SAT 88–100
[2024-11-12 07:38] LABS: POTASSIUM 3.7 mEq/L (3.5-5.1)
[2024-11-12 07:40] LABS: CALCIUM 9.3 mg/dL (8.7-10.4)
[2024-11-12 07:41] LABS: HEMATOCRIT. 28.4 % (36.0-48.0); HEMOGLOBIN. 8.8 g/dL (12.0-16.0); MEAN CORPUSCULAR HEMOGLOBIN 27.3 pg (28.0-32.0); MEAN CORPUSCULAR HGB CONC 30.9 g/dL (31.0-37.0); MEAN CORPUSCULAR VOLUME 88.3 fL (81.0-99.0); MEAN PLATELET VOLUME 8.9 fl (7.4-10.4); PLATELET 194 x1000/uL (130-400); RED BLOOD CELL COUNT 3.22 mill/uL (4.2-5.4); RED CELL DISTRIBUTION WIDTH 18.2 % (11.6-14.6); WHITE BLOOD COUNT 19.2 x1000/uL (4.5-11.0)
[2024-11-12 07:44] LABS: CREATININE 1.3 mg/dL (0.6-1.0)
[2024-11-12 08:08] LABS: DIFFERENTIAL COMMENT 1
[2024-11-12 10:31] LABS: BG BASE EXCESS 10.3 mmol/L (-2.0-3.0); BG CARBOXYHEMOGLOBIN 0.4 % (0.5-1.5); BG DEOXYHEMOGLOBIN 0.4 % (0.0-5.0); BG FRACTION INSPIRED OXYGEN 100; BG HCO3 ACT 36.4 mmol/L (21.0-28.0); BG METHEMOGLOBIN 0.3 % (0.5-1.5); BG OXYGEN SATURATION 99.6 % (94.0-98.0); BG OXYHEMOGLOBIN 98.9 % (94.0-98.0); BG PCO2 57.8 mmHg (32.0-45.0); BG PH 7.417 (7.350-7.450); BG SAMPLE SITE RIGHT RADIAL; BG TOTAL HEMOGLOBIN 10.1 g/dL (12.0-16.0); BG VENT MODE VENT - P/C
[2024-11-12 22:48] LABS: ANISOCYTOSIS 1+
[2024-11-12 22:49] LABS: PLATELET ESTIMATE NORMAL
[2024-11-13] VITALS (20 sets, daily range): BP systolic 92–147; BP diastolic 47–118; PULSE 60–112; RESP 16–34; TEMP 36.3–36.9; O2SAT 95–100
[2024-11-13] MEDS: VANCOMYCIN 750MG PMX (XELLIA) 150 ML IV SCH (00:23)
[2024-11-13] MEDS: DEXTROSE 5% WATER 1,000 ML IV SCH (06:32)
[2024-11-13 08:32] LABS: POTASSIUM 3.5 mEq/L (3.5-5.1)
[2024-11-13 08:33] LABS: CALCIUM 9.3 mg/dL (8.7-10.4)
[2024-11-13 08:38] LABS: CREATININE 1.3 mg/dL (0.6-1.0)
[2024-11-13 09:01] LABS: BG CARBOXYHEMOGLOBIN 0.5 % (0.5-1.5); BG DEOXYHEMOGLOBIN 0.6 % (0.0-5.0); BG FRACTION INSPIRED OXYGEN 100; BG HCO3 ACT 38.1 mmol/L (21.0-28.0); BG OXYGEN SATURATION 99.4 % (94.0-98.0); BG OXYHEMOGLOBIN 98.9 % (94.0-98.0); BG PCO2 88.1 mmHg (32.0-45.0); BG PH 7.254 (7.350-7.450); BG PO2 196.4 mmHg (83.0-108.0); BG SAMPLE SITE RIGHT RADIAL; BG VENT MODE VENT - P/C
[2024-11-13] MEDS: METHYLPREDNISOLONE SOD SUCC 40MG/ML (ACT-O-VIAL) IV SCH (09:30)
[2024-11-13 14:15] LABS: HEMOGLOBIN. 7.1 g/dL (12.0-16.0); MEAN CORPUSCULAR HEMOGLOBIN 26.8 pg (28.0-32.0); MEAN CORPUSCULAR HGB CONC 30.9 g/dL (31.0-37.0); RED BLOOD CELL COUNT 2.65 mill/uL (4.2-5.4); RED CELL DISTRIBUTION WIDTH 18.5 % (11.6-14.6); WHITE BLOOD COUNT 16.6 x1000/uL (4.5-11.0)
[2024-11-13 14:58] LABS: DIFFERENTIAL COMMENT 1
[2024-11-13 15:23] LABS: MEAN PLATELET VOLUME 8.7 fl (7.4-10.4); PLATELET 170 x1000/uL (130-400)
[2024-11-13 15:34] LABS: NUCLEATED RED BLOOD CELLS 3 /100 WBC; PLATELET ESTIMATE NORMAL
[2024-11-14] VITALS (23 sets, daily range): BP systolic 101–134; BP diastolic 42–68; PULSE 63–94; RESP 13–34; TEMP 36.2–36.7; O2SAT 90–100
[2024-11-14 06:10] LABS: HEMATOCRIT. 29.5 % (36.0-48.0); HEMOGLOBIN. 9.1 g/dL (12.0-16.0); MEAN CORPUSCULAR HEMOGLOBIN 27.5 pg (28.0-32.0); MEAN CORPUSCULAR VOLUME 88.7 fL (81.0-99.0); MEAN PLATELET VOLUME 9.1 fl (7.4-10.4); PLATELET 205 x1000/uL (130-400); POTASSIUM 3.3 mEq/L (3.5-5.1); RED BLOOD CELL COUNT 3.32 mill/uL (4.2-5.4); WHITE BLOOD COUNT 20.9 x1000/uL (4.5-11.0)
[2024-11-14 06:11] LABS: CALCIUM 9.3 mg/dL (8.7-10.4)
[2024-11-14 06:15] LABS: FERRITIN 862 ng/mL (10-291)
[2024-11-14 06:16] LABS: CREATININE 1.3 mg/dL (0.6-1.0); VITAMIN B12 SERUM 1785 pg/mL (211-911)
[2024-11-14 06:47] LABS: DIFFERENTIAL COMMENT 1
[2024-11-14] MEDS: VANCOMYCIN 1.25GM PMX (XELLIA) 250 ML IV SCH (10:14)
[2024-11-14] MEDS: ASCORBIC ACID 500 MG TABLET GT SCH (10:16)
[2024-11-14] MEDS: FERROUS SULFATE 300MG/5ML UDC GT SCH (10:16)
[2024-11-14 12:04] LABS: BG CARBOXYHEMOGLOBIN 0.6 % (0.5-1.5); BG DEOXYHEMOGLOBIN 6.3 % (0.0-5.0); BG FRACTION INSPIRED OXYGEN 80; BG HCO3 ACT 42.5 mmol/L (21.0-28.0); BG METHEMOGLOBIN 0.1 % (0.5-1.5); BG OXYGEN SATURATION 93.7 % (94.0-98.0); BG PCO2 105.7 mmHg (32.0-45.0); BG PH 7.222 (7.350-7.450); BG SAMPLE SITE LEFT RADIAL; BG TOTAL HEMOGLOBIN 9.5 g/dL (12.0-16.0); BG TOTAL RESPIRATORY RATE 34 b/min; BG VENT MODE VENT - P/C
[2024-11-14] MEDS: POTASSIUM CHLORIDE 20MEQ TABLET SR PO NR (14:02)
[2024-11-14 17:42] LABS: ANISOCYTOSIS 1+; PLATELET ESTIMATE NORMAL
[2024-11-14] MEDS: METOCLOPRAMIDE HCL 10MG/2ML VIAL IV SCH (18:00)
[2024-11-15] VITALS (21 sets, daily range): BP systolic 98–144; BP diastolic 44–81; PULSE 60–87; RESP 12–35; TEMP 36.1–36.7; O2SAT 91–100
[2024-11-15 07:06] LABS: POTASSIUM 3.4 mEq/L (3.5-5.1)
[2024-11-15 07:08] LABS: CALCIUM 9.2 mg/dL (8.7-10.4)
[2024-11-15 07:12] LABS: CREATININE 1.4 mg/dL (0.6-1.0)
[2024-11-15 07:20] LABS: HEMATOCRIT. 26.3 % (36.0-48.0); MEAN CORPUSCULAR HEMOGLOBIN 26.6 pg (28.0-32.0); MEAN CORPUSCULAR HGB CONC 30.3 g/dL (31.0-37.0); MEAN CORPUSCULAR VOLUME 87.8 fL (81.0-99.0); PLATELET 154 x1000/uL (130-400); RED BLOOD CELL COUNT 2.99 mill/uL (4.2-5.4); WHITE BLOOD COUNT 12.7 x1000/uL (4.5-11.0)
[2024-11-15 08:54] LABS: DIFFERENTIAL COMMENT 1
[2024-11-15 11:07] LABS: BG BASE EXCESS 12.4 mmol/L (-2.0-3.0); BG CARBOXYHEMOGLOBIN 1.3 % (0.5-1.5); BG DEOXYHEMOGLOBIN 3.6 % (0.0-5.0); BG FRACTION INSPIRED OXYGEN 40; BG HCO3 ACT 39.2 mmol/L (21.0-28.0); BG METHEMOGLOBIN 0.2 % (0.5-1.5); BG OXYGEN SATURATION 96.3 % (94.0-98.0); BG OXYHEMOGLOBIN 94.9 % (94.0-98.0); BG PCO2 67.8 mmHg (32.0-45.0); BG PO2 85.9 mmHg (83.0-108.0); BG SAMPLE SITE RIGHT RADIAL; BG TOTAL HEMOGLOBIN 8.3 g/dL (12.0-16.0); BG VENT MODE VENT - PRVC
[2024-11-15] MEDS: ACETAMINOPHEN 650MG/20.3ML UDC PO PRN (11:33)
[2024-11-15] MEDS: ERYTHROMYCIN ETHYLSUCCINATE 400 MG/5 ML GT SCH (14:14)
[2024-11-16] VITALS (16 sets, daily range): BP systolic 96–146; BP diastolic 50–69; PULSE 63–93; RESP 19–36; TEMP 36.3–37.3; O2SAT 93–100
[2024-11-16 06:01] LABS: POTASSIUM 3.1 mEq/L (3.5-5.1)
[2024-11-16 06:02] LABS: CALCIUM 9.1 mg/dL (8.7-10.4)
[2024-11-16 06:07] LABS: CREATININE 1.4 mg/dL (0.6-1.0)
[2024-11-16 08:24] LABS: HEMOGLOBIN. 7.6 g/dL (12.0-16.0); MEAN CORPUSCULAR HEMOGLOBIN 26.8 pg (28.0-32.0); MEAN CORPUSCULAR HGB CONC 30.3 g/dL (31.0-37.0); MEAN CORPUSCULAR VOLUME 88.5 fL (81.0-99.0); MEAN PLATELET VOLUME 9.4 fl (7.4-10.4); PLATELET 146 x1000/uL (130-400); RED BLOOD CELL COUNT 2.83 mill/uL (4.2-5.4); RED CELL DISTRIBUTION WIDTH 19.6 % (11.6-14.6); WHITE BLOOD COUNT 17.3 x1000/uL (4.5-11.0)
[2024-11-16] MEDS: POTASSIUM CHLORIDE 20MEQ TABLET SR PO SCH (08:28)
[2024-11-16] MEDS: POTASSIUM CHLORIDE 10MEQ TABLET SR PO NR (08:28)
[2024-11-16 09:02] LABS: DIFFERENTIAL COMMENT 1
[2024-11-16 09:27] LABS: PHOSPHORUS 3.4 mg/dL (2.5-4.9)
[2024-11-16 10:57] LABS: BG BASE EXCESS 10.8 mmol/L (-2.0-3.0); BG CARBOXYHEMOGLOBIN 1.1 % (0.5-1.5); BG DEOXYHEMOGLOBIN 8.4 % (0.0-5.0); BG FRACTION INSPIRED OXYGEN 80; BG HCO3 ACT 37.4 mmol/L (21.0-28.0); BG OXYGEN SATURATION 91.5 % (94.0-98.0); BG OXYHEMOGLOBIN 90.5 % (94.0-98.0); BG PCO2 65.5 mmHg (32.0-45.0); BG PH 7.374 (7.350-7.450); BG PO2 61.9 mmHg (83.0-108.0); BG SAMPLE SITE RIGHT RADIAL; BG TOTAL HEMOGLOBIN 7.5 g/dL (12.0-16.0); BG VENT MODE VENT - AC
[2024-11-16] MEDS: MAGNESIUM 1 G PREMIX 100 ML IV NR (11:26)
[2024-11-16] MEDS: DEXTROSE 5% WATER 1,000 ML IV SCH (11:27)
[2024-11-16 18:05] LABS: HYPOCHROMASIA 1+; PLATELET ESTIMATE NORMAL
[2024-11-16 18:22] LABS: PLATELET ESTIMATE NORMAL
[2024-11-16] MEDS: SULFAMETHOXAZOLE/TRIMETHOPRIM 200-40 MG/5ML 5ML ORAL SYR PO SCH (20:49)
[2024-11-17] VITALS (19 sets, daily range): BP systolic 110–152; BP diastolic 47–77; PULSE 71–97; RESP 16–38; TEMP 36.3–36.8; O2SAT 89–99
[2024-11-17] MEDS: ACETYLCYSTEINE 200MG/ML 20% VIAL 4ML INH SCH (01:05)
[2024-11-17 06:18] LABS: CALCIUM 9.8 mg/dL (8.7-10.4); CHLORIDE 100 mEq/L (98-107); POTASSIUM 3.3 mEq/L (3.5-5.1); SODIUM 147 mEq/L (136-145)
[2024-11-17 06:19] LABS: CARBON DIOXIDE 36 mEq/L (21-32)
[2024-11-17 06:24] LABS: CREATININE 1.5 mg/dL (0.6-1.0); GLUCOSE 360 mg/dL (70-105); UREA NITROGEN BLOOD 77 mg/dL (9-23)
[2024-11-17 06:45] LABS: HEMATOCRIT. 24.6 % (36.0-48.0); HEMOGLOBIN. 7.6 g/dL (12.0-16.0); MEAN CORPUSCULAR HEMOGLOBIN 27.4 pg (28.0-32.0); MEAN CORPUSCULAR HGB CONC 30.9 g/dL (31.0-37.0); MEAN CORPUSCULAR VOLUME 88.4 fL (81.0-99.0); PLATELET 134 x1000/uL (130-400); RED BLOOD CELL COUNT 2.79 mill/uL (4.2-5.4); RED CELL DISTRIBUTION WIDTH 19.3 % (11.6-14.6); WHITE BLOOD COUNT 21.1 x1000/uL (4.5-11.0)
[2024-11-17 09:17] LABS: DIFFERENTIAL COMMENT 1
[2024-11-17 09:27] LABS: BG BASE EXCESS 4.6 mmol/L (-2.0-3.0); BG CARBOXYHEMOGLOBIN 1.7 % (0.5-1.5); BG DEOXYHEMOGLOBIN 10.3 % (0.0-5.0); BG FRACTION INSPIRED OXYGEN 80; BG HCO3 ACT 32.8 mmol/L (21.0-28.0); BG METHEMOGLOBIN 0.3 % (0.5-1.5); BG OXYGEN SATURATION 89.5 % (94.0-98.0); BG OXYHEMOGLOBIN 87.7 % (94.0-98.0); BG PCO2 78.2 mmHg (32.0-45.0); BG PH 7.241 (7.350-7.450); BG PO2 62.6 mmHg (83.0-108.0); BG SAMPLE SITE RIGHT RADIAL; BG TOTAL HEMOGLOBIN 7.4 g/dL (12.0-16.0); BG VENT MODE VENT - AC
[2024-11-17] MEDS: POTASSIUM CHLORIDE 10MEQ TABLET SR PO NR (12:47)
[2024-11-17 18:47] LABS: ANISOCYTOSIS 1+; PLATELET ESTIMATE NORMAL
[2024-11-18] VITALS (23 sets, daily range): BP systolic 98–142; BP diastolic 48–67; PULSE 64–89; RESP 11–38; TEMP 36.2–36.7; O2SAT 97–100
[2024-11-18 06:09] LABS: POTASSIUM 3.9 mEq/L (3.5-5.1)
[2024-11-18 06:11] LABS: CALCIUM 8.9 mg/dL (8.7-10.4)
[2024-11-18 06:15] LABS: CREATININE 1.6 mg/dL (0.6-1.0)
[2024-11-18 09:22] LABS: BG BASE EXCESS 10.5 mmol/L (-2.0-3.0); BG CARBOXYHEMOGLOBIN 2.2 % (0.5-1.5); BG DEOXYHEMOGLOBIN 2.2 % (0.0-5.0); BG FRACTION INSPIRED OXYGEN 100; BG HCO3 ACT 41.2 mmol/L (21.0-28.0); BG METHEMOGLOBIN 0.3 % (0.5-1.5); BG OXYGEN SATURATION 97.7 % (94.0-98.0); BG OXYHEMOGLOBIN 95.3 % (94.0-98.0); BG PCO2 120.6 mmHg (32.0-45.0); BG PH 7.151 (7.350-7.450); BG PO2 106.7 mmHg (83.0-108.0); BG SAMPLE SITE RIGHT RADIAL; BG TOTAL HEMOGLOBIN 7.5 g/dL (12.0-16.0); BG VENT MODE VENT - AC
[2024-11-18] MEDS: METHYLPREDNISOLONE SOD SUCC 125MG/2ML (ACT-O-VIAL) IV SCH (14:16)
[2024-11-18 16:25] LABS: BG BASE EXCESS 6.8 mmol/L (-2.0-3.0); BG CARBOXYHEMOGLOBIN 1.6 % (0.5-1.5); BG FRACTION INSPIRED OXYGEN 100; BG HCO3 ACT 36.6 mmol/L (21.0-28.0); BG METHEMOGLOBIN 0.5 % (0.5-1.5); BG OXYGEN SATURATION 96.9 % (94.0-98.0); BG OXYHEMOGLOBIN 94.9 % (94.0-98.0); BG PCO2 105.9 mmHg (32.0-45.0); BG PH 7.157 (7.350-7.450); BG PO2 98.5 mmHg (83.0-108.0); BG SAMPLE SITE RIGHT RADIAL; BG TOTAL HEMOGLOBIN 7.1 g/dL (12.0-16.0); BG TOTAL RESPIRATORY RATE 38 b/min; BG VENT MODE VENT - AC
[2024-11-19] VITALS (31 sets, daily range): BP systolic 95–125; BP diastolic 43–62; PULSE 72–98; RESP 0–36; TEMP 35.6–36.8; O2SAT 89–100
[2024-11-19 05:54] LABS: HEMATOCRIT. 21.8 % (36.0-48.0); MEAN CORPUSCULAR HEMOGLOBIN 26.7 pg (28.0-32.0); MEAN CORPUSCULAR HGB CONC 30.1 g/dL (31.0-37.0); MEAN CORPUSCULAR VOLUME 88.9 fL (81.0-99.0); MEAN PLATELET VOLUME 10.3 fl (7.4-10.4); PLATELET 83 x1000/uL (130-400); RED BLOOD CELL COUNT 2.46 mill/uL (4.2-5.4); RED CELL DISTRIBUTION WIDTH 18.8 % (11.6-14.6); WHITE BLOOD COUNT 15.3 x1000/uL (4.5-11.0)
[2024-11-19 06:29] LABS: CALCIUM 10.3 mg/dL (8.7-10.4); POTASSIUM 3.6 mEq/L (3.5-5.1)
[2024-11-19 06:35] LABS: CREATININE 1.9 mg/dL (0.6-1.0)
[2024-11-19 09:29] LABS: BG BASE EXCESS 9.2 mmol/L (-2.0-3.0); BG CARBOXYHEMOGLOBIN 1.7 % (0.5-1.5); BG DEOXYHEMOGLOBIN 11.6 % (0.0-5.0); BG FRACTION INSPIRED OXYGEN 100; BG HCO3 ACT 37.9 mmol/L (21.0-28.0); BG METHEMOGLOBIN 0.1 % (0.5-1.5); BG OXYGEN SATURATION 88.2 % (94.0-98.0); BG OXYHEMOGLOBIN 86.6 % (94.0-98.0); BG PCO2 91.9 mmHg (32.0-45.0); BG PH 7.233 (7.350-7.450); BG PO2 58.7 mmHg (83.0-108.0); BG SAMPLE SITE RIGHT RADIAL; BG TOTAL HEMOGLOBIN 6.8 g/dL (12.0-16.0); BG TOTAL RESPIRATORY RATE 40 b/min; BG VENT MODE VENT - AC
[2024-11-19 10:25] LABS: DIFFERENTIAL COMMENT 1
[2024-11-19 10:29] LABS: HEMOGLOBIN. 6.6 g/dL (12.0-16.0)
[2024-11-19] MEDS: IPRATROPIUM/ALBUTEROL 0.5-3(2.5)MG/3ML NEB HHN SCH (12:00)
[2024-11-19 14:41] LABS: BG BASE EXCESS 8.9 mmol/L (-2.0-3.0); BG CARBOXYHEMOGLOBIN 1.8 % (0.5-1.5); BG DEOXYHEMOGLOBIN 3.6 % (0.0-5.0); BG FRACTION INSPIRED OXYGEN 100; BG HCO3 ACT 37.2 mmol/L (21.0-28.0); BG OXYGEN SATURATION 96.3 % (94.0-98.0); BG OXYHEMOGLOBIN 94.6 % (94.0-98.0); BG PH 7.239 (7.350-7.450); BG PO2 93.4 mmHg (83.0-108.0); BG SAMPLE SITE RIGHT RADIAL; BG TOTAL HEMOGLOBIN 6.2 g/dL (12.0-16.0); BG TOTAL RESPIRATORY RATE 24 b/min; BG VENT MODE VENT PRVC
[2024-11-19 23:00] LABS: ANISOCYTOSIS 1+; PLATELET ESTIMATE DECREASED
[2024-11-20] VITALS (18 sets, daily range): BP systolic 96–130; BP diastolic 45–63; PULSE 79–111; RESP 16–25; TEMP 36.2–36.9; O2SAT 93–99
[2024-11-20 06:48] LABS: HEMATOCRIT. 25.5 % (36.0-48.0); HEMOGLOBIN. 8.1 g/dL (12.0-16.0); MEAN CORPUSCULAR HEMOGLOBIN 27.7 pg (28.0-32.0); MEAN CORPUSCULAR HGB CONC 31.6 g/dL (31.0-37.0); MEAN CORPUSCULAR VOLUME 87.7 fL (81.0-99.0); MEAN PLATELET VOLUME 11.2 fl (7.4-10.4); PLATELET 98 x1000/uL (130-400); RED BLOOD CELL COUNT 2.91 mill/uL (4.2-5.4); RED CELL DISTRIBUTION WIDTH 17.7 % (11.6-14.6); WHITE BLOOD COUNT 21.4 x1000/uL (4.5-11.0)
[2024-11-20 06:54] LABS: CREATININE 2.2 mg/dL (0.6-1.0)
[2024-11-20 08:04] LABS: DIFFERENTIAL COMMENT 1
[2024-11-20 12:42] LABS: CREATINE KINASE 22 IU/L (34-145)
[2024-11-20 16:23] LABS: NUCLEATED RED BLOOD CELLS 2 /100 WBC; PLATELET ESTIMATE SLIGHTLY DECREASED
[2024-11-20] MEDS: FUROSEMIDE 40MG/4ML VIAL IVP NR (18:03)
[2024-11-20] MEDS: INSULIN GLARGINE 100 UNITS/ML SUBCUT SCH (21:48)
[2024-11-21] VITALS (33 sets, daily range): BP systolic 96–131; BP diastolic 48–89; PULSE 71–119; RESP 16–29; TEMP 36.1–36.6696; O2SAT 96–100
[2024-11-21 07:25] LABS: POTASSIUM 4.4 mEq/L (3.5-5.1)
[2024-11-21 07:31] LABS: CREATININE 2.6 mg/dL (0.6-1.0)
[2024-11-21 07:52] LABS: HEMATOCRIT. 21.1 % (36.0-48.0); MEAN CORPUSCULAR HEMOGLOBIN 28.1 pg (28.0-32.0); MEAN CORPUSCULAR HGB CONC 32.1 g/dL (31.0-37.0); MEAN CORPUSCULAR VOLUME 87.5 fL (81.0-99.0); MEAN PLATELET VOLUME 10.7 fl (7.4-10.4); PLATELET 79 x1000/uL (130-400); RED BLOOD CELL COUNT 2.41 mill/uL (4.2-5.4); RED CELL DISTRIBUTION WIDTH 17.8 % (11.6-14.6); WHITE BLOOD COUNT 16.5 x1000/uL (4.5-11.0)
[2024-11-21 08:41] LABS: BG BASE EXCESS 6.6 mmol/L (-2.0-3.0); BG CARBOXYHEMOGLOBIN 1.1 % (0.5-1.5); BG DEOXYHEMOGLOBIN 1.3 % (0.0-5.0); BG FRACTION INSPIRED OXYGEN 100; BG HCO3 ACT 34.8 mmol/L (21.0-28.0); BG METHEMOGLOBIN 0.7 % (0.5-1.5); BG OXYGEN SATURATION 98.7 % (94.0-98.0); BG OXYHEMOGLOBIN 96.9 % (94.0-98.0); BG PCO2 82.2 mmHg (32.0-45.0); BG PH 7.245 (7.350-7.450); BG PO2 151.4 mmHg (83.0-108.0); BG SAMPLE SITE RIGHT RADIAL; BG TOTAL HEMOGLOBIN 6.9 g/dL (12.0-16.0); BG VENT MODE VENT - AC/PRVC
[2024-11-21 09:00] LABS: DIFFERENTIAL COMMENT 1; HEMOGLOBIN. 6.8 g/dL (12.0-16.0)
[2024-11-21 11:42] LABS: ANISOCYTOSIS 1+; GIANT PLATELETS FEW; HYPOCHROMASIA 2+; MICROCYTOSIS 1+; PLATELET ESTIMATE DECREASED
[2024-11-21] MEDS: LORAZEPAM 2MG/ML INJ IV NR (12:37)
[2024-11-21] MEDS: SODIUM CHLORIDE 0.9% 1,000 ML IV SCH (18:43)
[2024-11-21] MEDS: COLISTIMETHATE SODIUM 75MG/3ML NEB SOLN NEB SCH (22:08)
[2024-11-22] VITALS (21 sets, daily range): BP systolic 95–124; BP diastolic 46–81; PULSE 81–119; RESP 14–36; TEMP 35.8–36.4; O2SAT 93–99
[2024-11-22 06:52] LABS: HEMATOCRIT. 34.7 % (36.0-48.0); HEMOGLOBIN. 11.1 g/dL (12.0-16.0); MEAN CORPUSCULAR HEMOGLOBIN 27.2 pg (28.0-32.0); MEAN CORPUSCULAR HGB CONC 31.8 g/dL (31.0-37.0); MEAN CORPUSCULAR VOLUME 85.5 fL (81.0-99.0); MEAN PLATELET VOLUME 10.6 fl (7.4-10.4); PLATELET 82 x1000/uL (130-400); RED BLOOD CELL COUNT 4.06 mill/uL (4.2-5.4); RED CELL DISTRIBUTION WIDTH 19.4 % (11.6-14.6)
[2024-11-22 07:29] LABS: INR 1.2; PROTHROMBIN TIME 12.7 sec (9.6-11.0)
[2024-11-22 07:34] LABS: DIFFERENTIAL COMMENT 1
[2024-11-22 07:55] LABS: CALCIUM 8.5 mg/dL (8.7-10.4); POTASSIUM 4.7 mEq/L (3.5-5.1)
[2024-11-22 08:01] LABS: CREATININE 2.9 mg/dL (0.6-1.0)
[2024-11-22 11:39] LABS: BG BASE EXCESS 0.1 mmol/L (-2.0-3.0); BG CARBOXYHEMOGLOBIN 1.7 % (0.5-1.5); BG DEOXYHEMOGLOBIN 7.5 % (0.0-5.0); BG FRACTION INSPIRED OXYGEN 100; BG HCO3 ACT 30.8 mmol/L (21.0-28.0); BG METHEMOGLOBIN 0.2 % (0.5-1.5); BG OXYGEN SATURATION 92.4 % (94.0-98.0); BG OXYHEMOGLOBIN 90.6 % (94.0-98.0); BG PCO2 88.9 mmHg (32.0-45.0); BG PH 7.157 (7.350-7.450); BG PO2 72.7 mmHg (83.0-108.0); BG SAMPLE SITE ALINE; BG TOTAL HEMOGLOBIN 11.5 g/dL (12.0-16.0); BG VENT MODE VENT - AC
[2024-11-22] MEDS ORDERED: DIATR MEGLU/DIATRIZOATE SOLN 30ML ONE (13:47)
[2024-11-22] MEDS: METHYLPREDNISOLONE SOD SUCC 40MG/ML (ACT-O-VIAL) IV SCH (14:59)
[2024-11-23] VITALS (25 sets, daily range): BP systolic 88–112; BP diastolic 51–90; PULSE 77–118; RESP 12–30; TEMP 34.4–36.3; O2SAT 93–100
[2024-11-23] MEDS: DEXTROSE 50% WATER 50ML SYRINGE IV PRN (00:01)
[2024-11-23] MEDS: LORAZEPAM 2MG/ML INJ IV NR (01:57)
[2024-11-23 06:25] LABS: CALCIUM 8.2 mg/dL (8.7-10.4); POTASSIUM 4.7 mEq/L (3.5-5.1)
[2024-11-23 07:21] LABS: HEMATOCRIT. 30.6 % (36.0-48.0); HEMOGLOBIN. 10.1 g/dL (12.0-16.0); MEAN CORPUSCULAR HEMOGLOBIN 27.9 pg (28.0-32.0); MEAN CORPUSCULAR VOLUME 84.5 fL (81.0-99.0); RED BLOOD CELL COUNT 3.63 mill/uL (4.2-5.4); RED CELL DISTRIBUTION WIDTH 19.6 % (11.6-14.6)
[2024-11-23 08:02] LABS: DIFFERENTIAL COMMENT 1
[2024-11-23] MEDS: SODIUM CHLORIDE 0.45% 1,000 ML IV SCH (11:15)
[2024-11-23 14:39] LABS: MEAN PLATELET VOLUME 10.5 fl (7.4-10.4); PLATELET 73 x1000/uL (130-400)
[2024-11-23] MEDS: DILTIAZEM HCL 30MG TABLET GT SCH (15:06)
[2024-11-23 18:31] LABS: ANISOCYTOSIS 1+; GIANT PLATELETS 1+; PLATELET ESTIMATE DECREASED
[2024-11-24] VITALS (102 sets, daily range): BP systolic 31–120; BP diastolic 13–79; PULSE 0–145; RESP 0–34; TEMP 34.4–36.7; O2SAT 56–100
[2024-11-24] MEDS: SODIUM CHLORIDE 0.9% 1,000 ML IV STA (00:35)
[2024-11-24] MEDS: MIDODRINE HCL 5MG TABLET PO SCH (00:47)
[2024-11-24] MEDS: MEROPENEM 500MG/50ML 50 ML IV SCH (03:01)
[2024-11-24] MEDS: DEXTROSE 50% WATER 50ML SYRINGE IV ONE (04:50)
[2024-11-24] MEDS: AMIODARONE 150MG/100ML D5W 100 ML IV NR (05:17)
[2024-11-24] MEDS: DEXT 10% WATER 1,000 ML IV SCH (05:29)
[2024-11-24] MEDS ORDERED: AMIODARONE 360MG/200ML 200 ML IV SCH (05:30)
[2024-11-24 05:37] LABS: BG BASE EXCESS -6.8 mmol/L (-2.0-3.0); BG CARBOXYHEMOGLOBIN 0.9 % (0.5-1.5); BG DEOXYHEMOGLOBIN 17.3 % (0.0-5.0); BG FRACTION INSPIRED OXYGEN 100; BG HCO3 ACT 25.2 mmol/L (21.0-28.0); BG METHEMOGLOBIN 0.2 % (0.5-1.5); BG OXYGEN SATURATION 82.5 % (94.0-98.0); BG OXYHEMOGLOBIN 81.6 % (94.0-98.0); BG PCO2 99.1 mmHg (32.0-45.0); BG PH 7.023 (7.350-7.450); BG PO2 55.6 mmHg (83.0-108.0); BG SAMPLE SITE RIGHT RADIAL; BG TOTAL HEMOGLOBIN 9.9 g/dL (12.0-16.0); BG TOTAL RESPIRATORY RATE 27 b/min; BG VENT MODE VENT - PRVC
[2024-11-24] MEDS: DEXTROSE 50% WATER 50ML SYRINGE IV NR (05:47)
[2024-11-24] MEDS: AMIODARONE HCL 450 MG in DEXT 5% WATER 241 ML IV SCH (05:49)
[2024-11-24] MEDS ORDERED: MIDODRINE HCL 5MG TABLET PO SCH (06:00)
[2024-11-24] MEDS: NOREPINEPHRINE 8MG/250ML PMX 250 ML IV PRN (08:34)
[2024-11-24 08:47] LABS: BG BASE EXCESS -6.2 mmol/L (-2.0-3.0); BG CARBOXYHEMOGLOBIN 1.1 % (0.5-1.5); BG DEOXYHEMOGLOBIN 12.4 % (0.0-5.0); BG FRACTION INSPIRED OXYGEN 100; BG HCO3 ACT 27.3 mmol/L (21.0-28.0); BG METHEMOGLOBIN 0.2 % (0.5-1.5); BG OXYGEN SATURATION 87.4 % (94.0-98.0); BG OXYHEMOGLOBIN 86.3 % (94.0-98.0); BG PCO2 123.2 mmHg (32.0-45.0); BG PH 6.964 (7.350-7.450); BG PO2 66.7 mmHg (83.0-108.0); BG SAMPLE SITE RIGHT RADIAL; BG TOTAL HEMOGLOBIN 10.4 g/dL (12.0-16.0); BG VENT MODE VENT - P-RVC
[2024-11-24] MEDS: PHENYLEPHRINE 50MG/250ML PMX 250 ML IV PRN (09:23)
[2024-11-24 12:22] LABS: HEMATOCRIT. 29.2 % (36.0-48.0); HEMOGLOBIN. 8.5 g/dL (12.0-16.0); MEAN CORPUSCULAR HEMOGLOBIN 26.9 pg (28.0-32.0); MEAN CORPUSCULAR HGB CONC 29.1 g/dL (31.0-37.0); MEAN CORPUSCULAR VOLUME 92.6 fL (81.0-99.0); MEAN PLATELET VOLUME 11.1 fl (7.4-10.4); PLATELET 66 x1000/uL (130-400); RED BLOOD CELL COUNT 3.15 mill/uL (4.2-5.4); RED CELL DISTRIBUTION WIDTH 21.1 % (11.6-14.6)
[2024-11-24 12:37] LABS: CARBON DIOXIDE 20 mEq/L (21-32); CHLORIDE 104 mEq/L (98-107); SODIUM 141 mEq/L (136-145)
[2024-11-24 12:38] LABS: CALCIUM 6.6 mg/dL (8.7-10.4)
[2024-11-24 12:42] LABS: CREATININE 2.8 mg/dL (0.6-1.0); GLUCOSE 282 mg/dL (70-105)
[2024-11-24 12:43] LABS: UREA NITROGEN BLOOD 99 mg/dL (9-23)
[2024-11-24 12:44] LABS: ALANINE AMINOTRANSFERASE 18 IU/L (10-49); ALBUMIN 2.3 g/dL (3.2-4.8)
[2024-11-24 12:45] LABS: ASPARTATE AMINOTRANSFERASE 50 IU/L (<34); BILIRUBIN TOTAL 0.9 mg/dL (0.1-1.0)
[2024-11-24 12:46] LABS: LACTIC ACID 3.3 mmol/L (0.4-2.0)
[2024-11-24 12:52] LABS: DIFFERENTIAL COMMENT 1
[2024-11-24 13:16] LABS: PROTEIN TOTAL 4.5 g/dL (6.0-8.3)
[2024-11-24 13:18] LABS: TROPONIN I HIGH SENSITIVITY 430 ng/L (3.0-34)
[2024-11-24 13:46] LABS: ANISOCYTOSIS 3+; NUCLEATED RED BLOOD CELLS 22 /100 WBC; PLATELET ESTIMATE MARKEDLY DECREASED
[2024-11-24 14:20] LABS: ANISOCYTOSIS 2+; NUCLEATED RED BLOOD CELLS 1 /100 WBC; PLATELET ESTIMATE DECREASED
[2024-11-24] MEDS: NOREPINEPHRINE 32 MG in DEXT 5% WATER 218 ML IV PRN (15:25)
[2024-11-24] MEDS ORDERED: AMIODARONE HCL 900 MG in DEXT 5% WATER 482 ML IV SCH (16:00)
[2024-11-24] MEDS: PHENYLEPHRINE 100 MG in DEXT 5% WATER 240 ML IV PRN (18:28)
[2024-11-24] MEDS: VASOPRESSIN 20 UNIT in SODIUM CHLORIDE 0.9% 99 ML IV PRN (18:29)
[2024-11-24] MEDS: EPINEPHRINE 10 MG in SODIUM CHLORIDE 0.9% 240 ML IV PRN (18:41)
[2024-11-24] MEDS: DOPAMINE 400MG/250ML PREMIX 250 ML IV PRN (19:00)
[2024-11-24] MEDS: VANCOMYCIN 125MG/2.5ML ORAL SYR PO SCH (21:00)
[2024-11-24] MEDS: SULFAMETHOXAZOLE/TRIMETHOPRIM 200-40 MG/5ML 5ML ORAL SYR PO SCH (21:00)
[2024-11-24] MEDS ORDERED: DOPAMINE 800MG PREMIX (DOUBLE) 250 ML IV PRN (21:30)
== END 2024-11-25 00:50 | DRG 870 ==
LOC: ER 06:15 → MICUSO 08:00 → EDBEDREQSVC 08:02 → EDBEDREQTM 08:02 → EDBEDREQ 08:02 → 5EST 11-06 20:10 → CVICU 11-24 04:53
PROVIDERS: ADMIT Internal Medicine; ATTEND Internal Medicine
PROC: 5A1955Z Respiratory Ventilation, Greater than 96 Consecutive Hours (ICD-10-PCS; 2024-10-31)
PROC: 02HV33Z Insertion of Infusion Device into Superior Vena Cava, Percutaneous Approach (ICD-10-PCS; 2024-10-31)
PROC: B548ZZA Ultrasonography of Superior Vena Cava, Guidance (ICD-10-PCS; 2024-10-31)
PROC: 0B21XFZ Change Tracheostomy Device in Trachea, External Approach (ICD-10-PCS; principal; 2024-11-02)
PROC: 0D20XUZ Change Feeding Device in Upper Intestinal Tract, External Approach (ICD-10-PCS; 2024-11-06)
PROC: 30233N1 Transfusion of Nonautologous Red Blood Cells into Peripheral Vein, Percutaneous Approach (ICD-10-PCS; 2024-11-07)
PROC: 0B21XFZ Change Tracheostomy Device in Trachea, External Approach (ICD-10-PCS; 2024-11-07)
PROC: 0B21XFZ Change Tracheostomy Device in Trachea, External Approach (ICD-10-PCS; 2024-11-24)
PROC: 5A12012 Performance of Cardiac Output, Single, Manual (ICD-10-PCS; 2024-11-24)
PROC: 03HY32Z Insertion of Monitoring Device into Upper Artery, Percutaneous Approach (ICD-10-PCS; 2024-11-24)
DX: A41.54 Sepsis due to Acinetobacter baumannii (principal); J18.9 Pneumonia, unspecified organism; G82.50 Quadriplegia, unspecified; G93.41 Metabolic encephalopathy; I21.4 Non-ST elevation (NSTEMI) myocardial infarction; I50.33 Acute on chronic diastolic (congestive) heart failure; N17.0 Acute kidney failure with tubular necrosis; R65.21 Severe sepsis with septic shock; J80 Acute respiratory distress syndrome; E87.4 Mixed disorder of acid-base balance; I13.0 Hypertensive heart and chronic kidney disease with heart failure and stage 1 through stage 4 chronic kidney disease, or unspecified chronic kidney disease; J44.0 Chronic obstructive pulmonary disease with (acute) lower respiratory infection; N39.0 Urinary tract infection, site not specified; I48.20 Chronic atrial fibrillation, unspecified; E46 Unspecified protein-calorie malnutrition; Z99.11 Dependence on respirator [ventilator] status; I48.92 Unspecified atrial flutter; E87.0 Hyperosmolality and hypernatremia; J93.82 Other air leak; Z16.24 Resistance to multiple antibiotics; J95.03 Malfunction of tracheostomy stoma; Z20.822 Contact with and (suspected) exposure to COVID-19; E11.22 Type 2 diabetes mellitus with diabetic chronic kidney disease; N18.1 Chronic kidney disease, stage 1; E11.649 Type 2 diabetes mellitus with hypoglycemia without coma; I25.10 Atherosclerotic heart disease of native coronary artery without angina pectoris; I49.3 Ventricular premature depolarization; F03.90 Unspecified dementia, unspecified severity, without behavioral disturbance, psychotic disturbance, mood disturbance, and anxiety; B96.83 Acinetobacter baumannii as the cause of diseases classified elsewhere; I69.320 Aphasia following cerebral infarction; Z95.0 Presence of cardiac pacemaker; Y95 Nosocomial condition; E87.6 Hypokalemia; E61.1 Iron deficiency; E78.00 Pure hypercholesterolemia, unspecified; D64.9 Anemia, unspecified; I27.20 Pulmonary hypertension, unspecified; I35.1 Nonrheumatic aortic (valve) insufficiency; Z74.01 Bed confinement status; Z86.19 Personal history of other infectious and parasitic diseases; I49.5 Sick sinus syndrome; K21.9 Gastro-esophageal reflux disease without esophagitis; Y83.8 Other surgical procedures as the cause of abnormal reaction of the patient, or of later complication, without mention of misadventure at the time of the procedure; Y92.89 Other specified places as the place of occurrence of the external cause; I07.1 Rheumatic tricuspid insufficiency
CPT/HCPCS: 31720; 36415; 36573; 36600; 71045; 71250; 74018; 76770; 80048; 80053; 80076; 80202; 81003; 82270; 82375; 82550; 82553; 82607; 82728; 82746; 82805; 82962; 83036; 83540; 83550; 83605; 83735; 84100; 84145; 84484; 85025; 85044; 85384; 86850; 86900; 86920; 87070; 87077; 87186; 87420; 87426; 87804; 92950; 93005; 93306; 93970; 94002; 94003; 94070; 94640; 94664; 98960; 99291; A4606; A4663; A6261; C1725; J0282; J0295; J0360; J0456; J0770; J1160; J1265; J1650; J1815; J1940; J2003; J2060; J2185; J2270; J2470; J2543; J2765; J2919; J2920; J3010; J3370; J3475; J3490; J7030; J7050; J7060; J7070; J7608; P9016; Q9963; J0131